=== PATIENT | male | born 1945 | race Caucasian/White ===

== ENCOUNTER 2017-10-22 16:53 | Inpatient (IN) | payer MEDICARE ==
[~2017-10-22] VITALS: Ht 172.7 cm; Wt 95.3 kg
[2017-10-22 17:22] VITALS: BP 123/67; PULSE 95; RESP 23; TEMP 101.9; O2SAT 96
[2017-10-22 17:30] VITALS: TEMP 102.6
[2017-10-22] MEDS ORDERED: SODIUM CHLOR 0.9% 1000 ML INJ 1,000 ML IV ONE ×2 (17:30→17:45)
--- NOTE | 2017-10-22 17:35 | RADRPT ---
EXAM DATE: 10/22/2017 5:30 PM EDT AGE/SEX: 72 years / Male INDICATIONS: Short of breath. CLINICAL DATA: This is the patient's initial encounter. Patient reports that signs and symptoms have been present for 1 day and indicates a pain score of 0/10. MEDICAL/SURGICAL HISTORY: None. None. COMPARISON: No prior exams available for comparison. FINDINGS: A single AP view of the chest demonstrates interstitial prominence to the bases. Heart is at the uppe r limits of normal in terms of size. No effusions. Bony structures are unremarkable. CONCLUSION: Mild interstitial prominence involving the bases. This could relate to early pulmonary edema. Electronically signed by: Davide Justice MD 10/22/2017 5:34 PM EDT
[2017-10-22] MEDS ORDERED: VANCOMYCIN INJ 1,000 MG in SODIUM CHLOR 0.9% 250 ML INJ 250 ML IV ONE (17:45)
[2017-10-22] MEDS ORDERED: PIPERACIL-TAZO 3.375 GM PREMIX 50 ML IV ONE (17:45)
[2017-10-22] MEDS ORDERED: ACETAMINOPHEN 325 MG TAB PO ONE (17:45)
[2017-10-22 18:08] LABS: AUTOMATED NEUTROPHIL # 7.8 TH/MM3 (1.8-7.7); BASOPHIL % 0.3 % (0.0-2.0); EOSINOPHIL % 0.5 % (0.0-4.0); HEMATOCRIT 33.8 % (39.0-51.0); HEMOGLOBIN 11.6 GM/DL (13.0-17.0); LYMPH % 2.1 % (9.0-44.0); LYMPHOCYTE # 0.2 TH/MM3 (1.0-4.8); MEAN CELL VOLUME 94.8 FL (80.0-100.0); MEAN CORPUSCULAR HEMOGLOBIN 32.5 PG (27.0-34.0); MEAN CORPUSCULAR HGB CONC 34.3 % (32.0-36.0); MEAN PLATELET VOLUME 7.5 FL (7.0-11.0); MONO % 8.7 % (0.0-8.0); MONOCYTE # 0.8 TH/MM3 (0-0.9); NEUT % 88.4 % (16.0-70.0); PLATELET COUNT 187 TH/MM3 (150-450); RED BLOOD COUNT 3.57 MIL/MM3 (4.50-5.90); WHITE BLOOD COUNT 8.8 TH/MM3 (4.0-11.0)
[2017-10-22] MEDS ORDERED: DULO1CAP3 PO (18:09)
[2017-10-22] MEDS ORDERED: PANC3600 PO (18:09)
[2017-10-22] MEDS ORDERED: DICL75TA PO (18:09)
[2017-10-22] MEDS ORDERED: CLON0.5T PO (18:09)
[2017-10-22] MEDS ORDERED: LOSA100T PO (18:09)
[2017-10-22] MEDS ORDERED: GLIM4TAB PO (18:09)
[2017-10-22] MEDS ORDERED: HYDR25TA5 PO (18:09)
[2017-10-22] MEDS ORDERED: METF1000 PO (18:09)
[2017-10-22] MEDS ORDERED: ATEN25TA PO (18:09)
[2017-10-22] MEDS ORDERED: ATOR80TA45 PO (18:09)
[2017-10-22] MEDS ORDERED: HYDR-3583 PO (18:09)
[2017-10-22] MEDS ORDERED: AMLO10TA2 PO (18:09)
[2017-10-22 18:22] LABS: PROTHROMBIN TIME - PATIENT 10.5 SEC (9.8-11.6)
[2017-10-22 18:40] VITALS: BP_SYST 118; BP_SYST 121; BP_SYST 126; BP_DIAS 57; BP_DIAS 58; BP_DIAS 60; RESP 17; RESP 19
[2017-10-22 18:44] LABS: ALBUMIN 3.2 GM/DL (3.4-5.0); AST (GOT) 101 U/L (15-37); BICARBONATE 20.6 MEQ/L (21.0-32.0); BLOOD UREA NITROGEN 21 MG/DL (7-18); CALCIUM 9.3 MG/DL (8.5-10.1); CHLORIDE 106 MEQ/L (98-107); CREATININE 1.37 MG/DL (0.60-1.30); GLOMERULAR FILTRATION RATE 51 ML/MIN (>89); GLUCOSE,RANDOM 226 MG/DL (74-106); MAGNESIUM 1.3 MG/DL (1.5-2.5); SODIUM (NA) 138 MEQ/L (136-145)
[2017-10-22 18:48] LABS: LACTIC ACID SEPSIS PROTOCOL 2.3 mmol/L (0.4-2.0)
[2017-10-22 18:56] LABS: ALKALINE PHOSPHATASE 318 U/L (45-117); ALT (GPT) 166 U/L (12-78); TOTAL BILIRUBIN ADULT 0.7 MG/DL (0.2-1.0); TOTAL PROTEIN 6.4 GM/DL (6.4-8.2); TROPONIN I LESS THAN 0.02 NG/ML (0.02-0.05)
--- NOTE | 2017-10-22 18:58 | RADRPT ---
EXAM DATE: 10/22/2017 6:53 PM EDT AGE/SEX: 72 years / Male INDICATIONS: General weakness. CLINICAL DATA: This is the patient's initial encounter. Patient reports that signs and symptoms have been present for 1 day and indicates a pain score of 0/10. MEDICAL/SURGICAL HISTORY: Diabetes. None. RADIATION DOSE: 39.52 CTDI (mGy) COMPARISON: No prior exams available for comparison. TECHNIQUE: CT of the head without contrast. Using automated exposure control and adjustment of the mA and/or kV according to patient size, radiation dose was kept as low as reasonably achievable to ob tain optimal diagnostic quality images. FINDINGS: Cerebrum: The ventricles are normal for age. No evidence of midline shift, mass lesion, hemorrhage or acute infarction. No extraaxial fluid collections are seen. Posterior Fossa: The cerebellum and brainstem are intact. The 4th ventricle is midline. The cerebe llopontine angle is unremarkable. Extracranial: The visualized portion of the orbits is intact. Skull: The calvaria is intact. No evidence of skull fracture. CONCLUSION: 1. Negative for an acute process. Electronically signed by: Stefan Woodward MD 10/22/2017 6:56 PM EDT
[2017-10-22 19:26] VITALS: BP 133/76; PULSE 76; RESP 16; TEMP 98.6; O2SAT 98
[2017-10-22 19:52] LABS: BILIRUBIN, URINE NEG (NEG); BLOOD, URINE NEG (NEG); GLUCOSE,URINE TRACE mg/dL (NEG); KETONE, URINE NEG (NEG); NITRITE,URINE NEG (NEG); PH, URINE 5.5 (5.0-8.5); URINE COLOR YELLOW (YELLW/STRAW); URINE LEUKOCYTE ESTERASE NEG (NEG)
--- NOTE | 2017-10-22 19:52 | PD ---
HPI Chief Complaint: General Weakness Time Seen by Provider: 17:18 Travel History International Travel<30 days: No Contact w/Intl Traveler<30days: No Traveled to known affect area: No History of Present Illness HPI 72-year-old male that presents to the ED for evaluation of weakness. Patient apparently has been having weakness since today. No history of this in the past. Patient himself is not a good historian. He denies any medical issues. He does state that he takes multiple medications but he does not know what they are and his has the list. He states that for the most part his called the imbalance because he could not get up on his own. Ambulance showed up and they found that he was orthostatic. Patient denies any urinary or bowel movement issues. No diarrhea. No nausea or vomiting. No pain on his chest or shortness of breath. Has no allergies to medication. No other medical issues at this time. He was given some fluids by ambulance. Patient states that he feels dizzy and lightheaded when he stands. Otherwise he has no symptoms. Patient does appear to be somewhat lethargic but arousable and answers questions appropriately. He also seems to minimize symptoms. He denies any pain anywhere. PFSH Past Medical History High Cholesterol: Yes Diabetes: Yes Patient Takes Glucophage: Yes Hypertension: Yes Pancreatitis: Yes Social History Alcohol Use: Yes (OCC) Tobacco Use: No Substance Use: No Allergies-Medications (Allergen,Severity, Reaction): Coded Allergies: No Known Allergies (Unverified , 10/22/17) Reported Meds & Prescriptions Reported Meds & Active Scripts Active Reported Diclofenac Sodium DR (Diclofenac Sodium) 75 Mg Tabdr 75 Mg PO BID Hydrocodone-Acetaminophen 10-325 mg Tab 1 Tab PO Q4H PRN Clonazepam 0.5 Mg Tab 0.5 Mg PO BID Creon (Pancrelipase) 36,000-114,000-180,000 Units Cap 1 Cap PO BID Metformin (Metformin HCl) 1,000 Mg Tab 1,000 Mg PO BIDPC Atenolol 25 Mg Tab 25 Mg PO BID Glimepiride 4 Mg Tab 4 Mg PO BIDAC Amlodipine (Amlodipine Besylate) 10 Mg Tab 10 Mg PO BID Atorvastatin (Atorvastatin Calcium) 80 Mg Tab 80 Mg PO HS Hydrochlorothiazide 25 Mg Tab 25 Mg PO BID Duloxetine DR (Duloxetine HCl) 60 Mg Capdr 60 Mg PO DAILY Losartan (Losartan Potassium) 100 Mg Tab 100 Mg PO DAILY Review of Systems Except as stated in HPI: all other systems reviewed are Neg Physical Exam Narrative GENERAL: Well-nourished, well-developed patient in no apparent distress. SKIN: Warm and dry. HEAD: Atraumatic. Normocephalic. EYES: Pupils equal and round reactive to light and accommodation. No scleral icterus. No injection or drainage. ENT: No nasal bleeding or discharge. Mucous membranes pink and moist. TMs are clear with no sign of infection or perforation. No mastoid tenderness. Ear canals are intact bilaterally. No lymphadenopathy. Nostril mucosa is red and moist with clear mucus noted. No sinus tenderness to palpation noted. Tonsils are not enlarged or swollen. No ulvua Deviation. Tongue is midline. NECK: Trachea midline. No JVD. No meningeal signs noted CARDIOVASCULAR: Regular rate and rhythm. RESPIRATORY: No accessory muscle use. Clear to auscultation. Breath sounds equal bilaterally. GASTROINTESTINAL: Abdomen soft, non-tender, nondistended. Hepatic and splenic margins not palpable. MUSCULOSKELETAL: Extremities without clubbing, cyanosis, or edema. No obvious deformities. Full range of motion of the upper and lower extremities bilaterally. 2+ pulses bilaterally. Rectal exam: The with female nurse present. No obvious sign of hernia or deformity noted. Patient had a Hemoccult that was negative. NEUROLOGICAL: Awake and alert. No obvious cranial nerve deficits. Motor grossly within normal limits. Five out of 5 muscle strength in the arms and legs. Normal speech. PSYCHIATRIC: Appropriate mood and affect; insight and judgment normal. Data Data Last Documented VS Vital Signs Date Time Temp Pulse Resp B/P (MAP) Pulse Ox O2 Delivery O2 Flow Rate FiO2 10/22/17 19:26 98.6 76 16 133/76 (95) 98 Room Air Orders Orders Electrocardiogram (10/22/17 17:18) Complete Blood Count With Diff (10/22/17 17:18) Comprehensive Metabolic Panel (10/22/17 17:18) Ckmb (Isoenzyme) Profile (10/22/17 17:18) Troponin I (10/22/17 17:18) Prothrombin Time / Inr (Pt) (10/22/17 17:18) Act Partial Throm Time (Ptt) (10/22/17 17:18) Blood Culture (10/22/17 17:18) Urinalysis - C+S If Indicated (10/22/17 17:18) Magnesium (Mg) (10/22/17 17:18) Thyroid Stimulating Hormone (10/22/17 17:18) Chest, Single Ap (10/22/17 17:18) Ct Brain W/O Iv Contrast(Rout) (10/22/17 17:18) Iv Access Insert/Monitor (10/22/17 17:18) Ecg Monitoring (10/22/17 17:18) Oximetry (10/22/17 17:18) Orthostatic Vital Signs (10/22/17 17:18) Sodium Chlor 0.9% 1000 Ml Inj (Ns 1000 M (10/22/17 17:30) Lactic Acid Sepsis Protocol (10/22/17 17:36) Sodium Chlor 0.9% 1000 Ml Inj (Ns 1000 M (10/22/17 17:45) Acetaminophen (Tylenol) (10/22/17 17:45) Vancomycin Inj (Vancomycin Inj) (10/22/17 17:45) Piperacil-Tazo 3.375 Gm Premix (Zosyn 3. (10/22/17 17:45) Sepsis Workup Initiated (10/22/17 17:37) Us Abdomen Gallbladder (10/22/17 ) Labs Laboratory Tests Test 10/22/17 17:45 10/22/17 19:20 10/22/17 20:40 White Blood Count 8.8 TH/MM3 Red Blood Count 3.57 MIL/MM3 Hemoglobin 11.6 GM/DL Hematocrit 33.8 % Mean Corpuscular Volume 94.8 FL Mean Corpuscular Hemoglobin 32.5 PG Mean Corpuscular Hemoglobin Concent 34.3 % Red Cell Distribution Width 13.0 % Platelet Count 187 TH/MM3 Mean Platelet Volume 7.5 FL Neutrophils (%) (Auto) 88.4 % Lymphocytes (%) (Auto) 2.1 % Monocytes (%) (Auto) 8.7 % Eosinophils (%) (Auto) 0.5 % Basophils (%) (Auto) 0.3 % Neutrophils # (Auto) 7.8 TH/MM3 Lymphocytes # (Auto) 0.2 TH/MM3 Monocytes # (Auto) 0.8 TH/MM3 Eosinophils # (Auto) 0.0 TH/MM3 Basophils # (Auto) 0.0 TH/MM3 CBC Comment DIFF FINAL Differential Comment Prothrombin Time 10.5 SEC Prothromb Time International Ratio 1.0 RATIO Activated Partial Thromboplast Time 23.4 SEC Blood Urea Nitrogen 21 MG/DL Creatinine 1.37 MG/DL Random Glucose 226 MG/DL Total Protein 6.4 GM/DL Albumin 3.2 GM/DL Calcium Level 9.3 MG/DL Magnesium Level 1.3 MG/DL Alkaline Phosphatase 318 U/L Aspartate Amino Transf (AST/SGOT) 101 U/L Alanine Aminotransferase (ALT/SGPT) 166 U/L Total Bilirubin 0.7 MG/DL Sodium Level 138 MEQ/L Potassium Level 4.1 MEQ/L Chloride Level 106 MEQ/L Carbon Dioxide Level 20.6 MEQ/L Anion Gap 11 MEQ/L Estimat Glomerular Filtration Rate 51 ML/MIN Lactic Acid Level 2.3 mmol/L Total Creatine Kinase 86 U/L Troponin I LESS THAN 0.02 NG/ML Thyroid Stimulating Hormone 3rd Gen 1.250 uIU/ML Urine Color YELLOW Urine Turbidity CLEAR Urine pH 5.5 Urine Specific [place] 1.015 Urine Protein NEG mg/dL Urine Glucose (UA) TRACE mg/dL Urine Ketones NEG mg/dL Urine Occult Blood NEG Urine Nitrite NEG Urine Bilirubin NEG Urine Urobilinogen LESS THAN 2.0 MG/DL Urine Leukocyte Esterase NEG Urine RBC LESS THAN 1 /hpf Urine WBC LESS THAN 1 /hpf Microscopic Urinalysis Comment CULT NOT INDICATED MDM Medical Decision Making Medical Screen Exam Complete: Yes Emergency Medical Condition: Yes Medical Record Reviewed: Yes Interpretation(s) CBC & BMP Diagram 10/22/17 17:45 Total Protein 6.4, Albumin 3.2 L, Calcium Level 9.3, Magnesium Level 1.3 L, Alkaline Phosphatase 318 H, Aspartate Amino Transf (AST/SGOT) 101 H, Alanine Aminotransferase (ALT/SGPT) 166 H, Total Bilirubin 0.7 lactic acid in the 2s troponin and CKMB WNL EKG showed sinus tachycardia but no sign of acute ischemia or arrhythmia per my attending. He does appear to have an LBBB of unclear chronicity. Last Impressions Head CT 10/22/171717 Signed Impressions: CONCLUSION: 1. Negative for an acute process. Chest X-Ray 10/22/171717 Signed Impressions: CONCLUSION: Mild interstitial prominence involving the bases. This could relate to early pulmonary edema. Differential Diagnosis Sepsis versus orthostatic hypotension versus hypotension versus fever versus fever of unknown etiology versus UTI versus cystitis versus syncope versus ACS Narrative Course 72-year-old male that presents to the ED for evaluation of hypotension. Patient was properly examined and was found to have signs and symptoms concerning for sepsis. Hemoccult was done by me and was negative. Labs and imaging were ordered. Patient was found to have a temperature here 102 rectally and 101 by mouth. Patient was given Tylenol and fluids started. Sepsis protocol was started. My attending Dr. Johnson himself evaluated the patient and recommends starting antibiotics for now. Labs and imaging showed elevated lactic acid and elevated liver enzymes. Ultrasound was ordered as well as had a gallbladder disease although patient has no Stokes sign or any pain on his abdomen. Orthostatics were improved after fluids. Patient states fever went away with Tylenol. Unclear etiology of the symptoms as patient does not really complain of anything other than weakness when she stands. At this time recommendations for admission for further evaluation. My attending agrees with plan. Patient agrees with plan. Case discussed with Dr. Browne who agrees to admission. Sepsis Criteria SIRS Criteria (2 or more): Temp > 100.9 or < 96.8, Heart rate over 90 Sepsis Criteria (SIRS+source): Infect source susp/known Severe Sepsis (+one): Lactate >2 Criteria Outcome: Meets sepsis criteria Diagnosis Primary Impression: Sepsis Qualified Codes: A41.9 - Sepsis, unspecified organism Additional Impressions: Weakness Fever of unknown origin Lactic acid increased Hypotension Qualified Codes: I95.9 - Hypotension, unspecified Admitting Information Admitting Physician Requests: Admit Dar Bartlett Oct 22, 2017 19:52
--- NOTE | 2017-10-22 20:23 | RADRPT ---
EXAM DATE: 10/22/2017 8:20 PM EDT AGE/SEX: 72 years / Male INDICATIONS: Right upper quadrant pain. CLINICAL DATA: This is the patient's initial encounter. Patient reports that signs and/or symptoms h ave been present for 3 days and indicates a pain score of 0/10. MEDICAL/SURGICAL HISTORY: Hypercholesterolemia. Hypertension. Pancreatitis. Diabetes. . Back s urgery. COMPARISON: No prior exams available for comparison. MEASUREMENTS (cm x cm x cm): Liver:__ 16.2 cm length Common Bile Duct:__ 4mm FINDINGS: Liver: Coarse echotexture suggesting fatty change or diffuse hepatocellular process. Portal Vein: Normal flow is seen in portal vein. Common Duct: No intraluminal mass or stone visualized. Gallbladder: Demonstrates no wall thickening or pericholecystic fluid. No stones visualized. Mild pr ominence the gallbladder Pancreas: Not well visualized. Right Kidney: No mass or hydronephrosis Other: None. CONCLUSION: 1. Echogenic liver 2. Prominent gallbladder without stones or gallbladder wall thickening. Electronically signed by: Stefan Woodward MD 10/22/2017 8:22 PM EDT
[2017-10-22 21:23] VITALS: BP 120/69; PULSE 69; RESP 16; O2SAT 98
[2017-10-22] MEDS ORDERED: NALOXONE HCL 0.4 MG/ML AMP IV PUSH PRN (22:00)
[2017-10-22] MEDS ORDERED: DEXTROSE 50% IN WATER 50 ML VIAL(D50) IV PUSH PRN (22:00)
[2017-10-22] MEDS ORDERED: ACETAMINOPHEN 325 MG TAB PO PRN (22:00)
[2017-10-22] MEDS ORDERED: SODIUM CHLORIDE 0.9% FLUSH 10 ML FLUSH IV FLUSH PRN (22:00)
[2017-10-22] MEDS ORDERED: GLUCAGON 1 MG/ML VIAL OTHER PRN (22:00)
[2017-10-22] MEDS: SODIUM CHLOR 0.9% 1000 ML INJ 1,000 ML IV SCH (22:05)
[2017-10-22] MEDS: HEPARIN SODIUM - SQ 10,000 UNITS/ML VIAL SQ SCH (22:25)
[2017-10-22 22:45] VITALS: BP_SYST 136; BP_SYST 139; BP_SYST 155; BP_DIAS 62; BP_DIAS 70; BP_DIAS 71; PULSE 62; RESP 20; TEMP 98.2; O2SAT 98
--- NOTE | 2017-10-22 23:33 | HHI.HP ---
HPI Service [facility] Primary Care Physician Deja Sadler MD Admission Diagnosis sepsis, unkown source, hypotension Diagnoses: Travel History International Travel<30 Days: No Contact w/Intl Traveler <30 Da: No Traveled to Known Affected Are: No History of Present Illness 72-year-old male with a past medical history significant for hypertension, hyperlipidemia, anxiety/depression and diabetes mellitus presents to the emergency department for evaluation of weakness the patient reports that earlier today he was on the floor playing with the dog and was unable to get up. He has no history of this. The patient is a poor historian. He endorses subjective fevers/chills. Denies cough. No chest pain or shortness of breath. No otorrhea breath/rhinorrhea. No dysuria. No abdominal pain. No nausea/ vomiting/diarrhea. No lateralizing signs or symptoms. Review of Systems Except as stated in HPI: all other systems reviewed are Neg Past Family Social History Past Medical History hypertension, hyperlipidemia, anxiety/depression and diabetes mellitus Past Surgical History Back surgery I&D left elbow Tonsillectomy Reported Medications Reported Meds & Active Scripts Active Reported Diclofenac Sodium DR (Diclofenac Sodium) 75 Mg Tabdr 75 Mg PO BID Hydrocodone-Acetaminophen 10-325 mg Tab 1 Tab PO Q4H PRN Clonazepam 0.5 Mg Tab 0.5 Mg PO BID Creon (Pancrelipase) 36,000-114,000-180,000 Units Cap 1 Cap PO BID Metformin (Metformin HCl) 1,000 Mg Tab 1,000 Mg PO BIDPC Atenolol 25 Mg Tab 25 Mg PO BID Glimepiride 4 Mg Tab 4 Mg PO BIDAC Amlodipine (Amlodipine Besylate) 10 Mg Tab 10 Mg PO BID Atorvastatin (Atorvastatin Calcium) 80 Mg Tab 80 Mg PO HS Hydrochlorothiazide 25 Mg Tab 25 Mg PO BID Duloxetine DR (Duloxetine HCl) 60 Mg Capdr 60 Mg PO DAILY Losartan (Losartan Potassium) 100 Mg Tab 100 Mg PO DAILY Allergies: Coded Allergies: No Known Allergies (Unverified , 10/22/17) Family History Negative for CAD/DM Social History Occasional alcohol. Denies tobacco and illicit drugs. Physical Exam Vital Signs Vital Signs Date Time Temp Pulse Resp B/P (MAP) Pulse Ox O2 Delivery O2 Flow Rate FiO2 10/22/17 21:23 69 16 120/69 (86) 98 Room Air 10/22/17 19:26 98.6 76 16 133/76 (95) 98 Room Air 10/22/17 18:40 82 17 126/60 (82) 84 19 118/58 (78) 90 17 121/57 (78) 10/22/17 17:30 102.6 10/22/17 17:22 101.9 95 23 123/67 (85) 96 Room Air Physical Exam GENERAL: male lying in bed SKIN: No rashes, ecchymoses or lesions. Cool and dry. HEAD: Atraumatic. Normocephalic. No temporal or scalp tenderness. EYES: Pupils equal round and reactive. Extraocular motions intact. No scleral icterus. No injection or drainage. ENT: Nose without bleeding, purulent drainage or septal hematoma. Throat without erythema, tonsillar hypertrophy or exudate. Uvula midline. Airway patent. NECK: Trachea midline. No JVD or lymphadenopathy. Supple, nontender, no meningeal signs. CARDIOVASCULAR: Regular rate and rhythm without murmurs, gallops, or rubs. RESPIRATORY: Clear to auscultation. Breath sounds equal bilaterally. No wheezes , rales, or rhonchi. GASTROINTESTINAL: Abdomen soft, non-tender, nondistended. No hepato-splenomegaly , or palpable masses. No guarding. MUSCULOSKELETAL: Extremities without clubbing, cyanosis, or edema. No joint tenderness, effusion, or edema noted. No calf tenderness. NEUROLOGICAL: Awake and alert. Cranial nerves II through XII intact. Motor and sensory grossly within normal limits. Normal speech. Laboratory Laboratory Tests Test 10/22/17 17:45 10/22/17 19:20 10/22/17 20:40 White Blood Count 8.8 Red Blood Count 3.57 Hemoglobin 11.6 Hematocrit 33.8 Mean Corpuscular Volume 94.8 Mean Corpuscular Hemoglobin 32.5 Mean Corpuscular Hemoglobin Concent 34.3 Red Cell Distribution Width 13.0 Platelet Count 187 Mean Platelet Volume 7.5 Neutrophils (%) (Auto) 88.4 Lymphocytes (%) (Auto) 2.1 Monocytes (%) (Auto) 8.7 Eosinophils (%) (Auto) 0.5 Basophils (%) (Auto) 0.3 Neutrophils # (Auto) 7.8 Lymphocytes # (Auto) 0.2 Monocytes # (Auto) 0.8 Eosinophils # (Auto) 0.0 Basophils # (Auto) 0.0 CBC Comment DIFF FINAL Differential Comment Prothrombin Time 10.5 Prothromb Time International Ratio 1.0 Activated Partial Thromboplast Time 23.4 Blood Urea Nitrogen 21 Creatinine 1.37 Random Glucose 226 Total Protein 6.4 Albumin 3.2 Calcium Level 9.3 Magnesium Level 1.3 Alkaline Phosphatase 318 Aspartate Amino Transf (AST/SGOT) 101 Alanine Aminotransferase (ALT/SGPT) 166 Total Bilirubin 0.7 Sodium Level 138 Potassium Level 4.1 Chloride Level 106 Carbon Dioxide Level 20.6 Anion Gap 11 Estimat Glomerular Filtration Rate 51 Lactic Acid Level 2.3 1.4 Total Creatine Kinase 86 Troponin I LESS THAN 0.02 Thyroid Stimulating Hormone 3rd Gen 1.250 Urine Color YELLOW Urine Turbidity CLEAR Urine pH 5.5 Urine Specific [place] 1.015 Urine Protein NEG Urine Glucose (UA) TRACE Urine Ketones NEG Urine Occult Blood NEG Urine Nitrite NEG Urine Bilirubin NEG Urine Urobilinogen LESS THAN 2.0 Urine Leukocyte Esterase NEG Urine RBC LESS THAN 1 Urine WBC LESS THAN 1 Microscopic Urinalysis Comment CULT NOT INDICATED Date/Time Source Procedure Growth Status 10/22/17 17:45 Blood Peripheral Aerobic Blood Culture Pending Received 10/22/17 17:45 Blood Peripheral Anaerobic Blood Culture Pending Received Result Diagram: 10/22/17 1745 10/22/17 174 Caprini VTE Risk Assessment Caprini VTE Risk Assessment: Mod/High Risk (score >= 2) Caprini Risk Assessment Model Point Value = 1 Point Value = 2 Point Value = 3 Point Value = 5 Age 41-60 Minor surgery BMI > 25 kg/m2 Swollen legs Varicose veins or History of unexplained or recurrent spontaneous Oral contraceptives or hormone replacement Sepsis (< 1 month) Serious lung disease, including pneumonia (< 1 month) Abnormal pulmonary function Acute myocardial infarction Congestive heart failure (< 1 month) History of inflammatory bowel disease Medical patient at bed rest Age 61-74 Arthroscopic surgery Major open surgery (> 45 min) Laparoscopic surgery (> 45 min) Malignancy Confined to bed (> 72 hours) Immobilizing plaster cast Central venous access Age >= 75 History of VTE Family history of VTE Factor V Leiden Prothrombin [id number] Lupus anticoagulant Anticardiolipin antibodies Elevated serum homocysteine Heparin-induced thrombocytopenia Other congenital or acquired thrombophilia Stroke (< 1 month) Elective arthroplasty Hip, pelvis, or leg fracture Acute spinal cord injury (< 1 month) Prophylaxis Regimen Total Risk Factor Score Risk Level Prophylaxis Regimen 0-1 Low Early ambulation 2 Moderate Order ONE of the following: *Sequential Compression Device (SCD) *Heparin 5000 units SQ BID 3-4 Higher Order ONE of the following medications: *Heparin 5000 units SQ TID *Enoxaparin/Lovenox 40 mg SQ daily (WT < 150 kg, CrCl > 30 mL/min) *Enoxaparin/Lovenox 30 mg SQ daily (WT < 150 kg, CrCl > 10-29 mL/min) *Enoxaparin/Lovenox 30 mg SQ BID (WT < 150 kg, CrCl > 30 mL/min) AND/OR *Sequential Compression Device (SCD) 5 or more Highest Order ONE of the following medications: *Heparin 5000 units SQ TID (Preferred with Epidurals) *Enoxaparin/Lovenox 40 mg SQ daily (WT < 150 kg, CrCl > 30 mL/min) *Enoxaparin/Lovenox 30 mg SQ daily (WT < 150 kg, CrCl > 10-29 mL/min) *Enoxaparin/Lovenox 30 mg SQ BID (WT < 150 kg, CrCl > 30 mL/min) AND *Sequential Compression Device (SCD) Assessment and Plan Assessment and Plan Assessment/plan: 1. SIRS Patient with fever, tachycardia and elevated lactic acid Chest x-ray significant for mild interstitial prominence in the bases, personally reviewed No leukocytosis UA negative Flu pending Blood cultures pending Zosyn 2. Transaminitis AST/ALT 101/166 Gallbladder ultrasound negative Continue to monitor 3. Diabetes mellitus Holding home metformin Sliding-scale insulin Monitor blood glucose 4. Hypertension/hyperlipidemia/anxiety/depression Continue home medications 5. AK I BUN/creatinine 21/1.37 IV fluid hydration Monitor renal function FEN Heart healthy diet Electrolytes: Monitor and replete as needed NS at 100 cc/hour Heparin Physician Certification 2 Midnight Certification Type: Admission for Inpatient Services Order for Inpatient Services The services are ordered in accordance with Medicare regulations or non- Medicare payer requirements, as applicable. In the case of services not specified as inpatient-only, they are appropriately provided as inpatient services in accordance with the 2-midnight benchmark. Estimated LOS (days): 2 2 days is the estimated time the patient will need to remain in the hospital, assuming treatment plan goals are met and no additional complications. Post-Hospital Plan: Not yet determined Lashonda Browne MD Oct 22, 2017 23:33
[2017-10-23] MEDS: ATORVASTATIN 80 MG TAB PO SCH ×2 (00:02→21:23)
[2017-10-23] MEDS: PIPERACIL-TAZO 3.375 GM PREMIX 50 ML IV SCH ×4 (00:02→17:30)
[2017-10-23 04:00] VITALS: BP 113/56; PULSE 48; RESP 20; TEMP 98.2; O2SAT 98
[2017-10-23] MEDS: HEPARIN SODIUM - SQ 10,000 UNITS/ML VIAL SQ SCH ×3 (04:21→21:30)
[2017-10-23 04:58] VITALS: PULSE 61
[2017-10-23] MEDS: INSULIN ASPART SUPPLEMENTAL SCALE SQ SCH ×4 (07:40→21:00)
[2017-10-23 08:00] VITALS: BP_SYST 150; BP_SYST 155; BP_SYST 169; BP_DIAS 70; BP_DIAS 72; BP_DIAS 74; PULSE 47; RESP 17; TEMP 97.6; O2SAT 97
[2017-10-23] MEDS: LOSARTAN 50 MG TAB PO SCH (08:48)
[2017-10-23] MEDS: DULoxetine HCl DR 60 MG CAP PO SCH (08:48)
[2017-10-23] MEDS: LIPASE/PROTEASE/AMYLASE (24,000/76,000/120,000) CAP PO SCH ×2 (08:48→21:25)
[2017-10-23] MEDS: ATENOLOL 25 MG TAB PO SCH ×2 (08:48→21:00)
[2017-10-23] MEDS: SODIUM CHLOR 0.9% 1000 ML INJ 1,000 ML IV SCH ×3 (08:48→21:30)
[2017-10-23] MEDS: SODIUM CHLORIDE 0.9% FLUSH 10 ML FLUSH IV FLUSH SCH ×2 (08:49→21:35)
[2017-10-23] MEDS ORDERED: LIPASE/PROTEASE/AMYLASE (12,000/38,000/60,000) CAP PO SCH (09:00)
--- NOTE | 2017-10-23 09:13 | EKG ---
Date Performed: 10/22/2017 Time Performed: 16:17:35 PTAGE: 72 years EKG: SINUS TACHYCARDIA WITH FIRST DEGREE AV BLOCK LEFT BUNDLE BRANCH BLOCK NO PREVIOUS TRACING DOCTOR: Ross Daigle Interpretating Date/Time 10/23/2017 09:13:12
[2017-10-23 09:42] LABS: AUTOMATED NEUTROPHIL # 9.5 TH/MM3 (1.8-7.7); BASOPHIL % 0.2 % (0.0-2.0); EOSINOPHIL # 0.2 TH/MM3 (0-0.4); EOSINOPHIL % 1.7 % (0.0-4.0); HEMATOCRIT 32.2 % (39.0-51.0); HEMOGLOBIN 11.1 GM/DL (13.0-17.0); LYMPH % 11.7 % (9.0-44.0); LYMPHOCYTE # 1.4 TH/MM3 (1.0-4.8); MEAN CELL VOLUME 95.7 FL (80.0-100.0); MEAN CORPUSCULAR HEMOGLOBIN 33.1 PG (27.0-34.0); MEAN CORPUSCULAR HGB CONC 34.6 % (32.0-36.0); MEAN PLATELET VOLUME 7.6 FL (7.0-11.0); MONO % 8.1 % (0.0-8.0); NEUT % 78.3 % (16.0-70.0); PLATELET COUNT 191 TH/MM3 (150-450); RED BLOOD COUNT 3.36 MIL/MM3 (4.50-5.90); WHITE BLOOD COUNT 12.1 TH/MM3 (4.0-11.0)
[2017-10-23 10:14] LABS: ALKALINE PHOSPHATASE 235 U/L (45-117); ALT (GPT) 127 U/L (12-78); AST (GOT) 58 U/L (15-37); BICARBONATE 23.5 MEQ/L (21.0-32.0); BLOOD UREA NITROGEN 14 MG/DL (7-18); CALCIUM 9.4 MG/DL (8.5-10.1); CHLORIDE 109 MEQ/L (98-107); GLOMERULAR FILTRATION RATE 74 ML/MIN (>89); GLUCOSE,RANDOM 94 MG/DL (74-106); SODIUM (NA) 142 MEQ/L (136-145)
[2017-10-23] MEDS ORDERED: DIATRIZOATE MEGLUM/DIATRIZOATE SOD 9 ML CUP PO ONE (10:45)
[2017-10-23 12:00] VITALS: BP 148/67; PULSE 55; RESP 16; TEMP 98.6; O2SAT 98
[2017-10-23 13:09] LABS: CHOLESTEROL/ HDL RATIO 2.31 RATIO; HDL CHOLESTEROL 37.6 MG/DL (40.0-60.0)
--- NOTE | 2017-10-23 14:06 | HHI.PR ---
Subjective Remarks Patient with his at the bedside He reported no acute issue today and he is doing well When asked the patient about any liver lesions in the past he told me he did have a problem with his liver last year and he had a stent placed and removed later at the time but he does not know the diagnosis He told me he has a PCP in [place] Objective Vitals Vital Signs Date Time Temp Pulse Resp B/P (MAP) Pulse Ox O2 Delivery O2 Flow Rate FiO2 10/23/17 12:00 98.6 55 16 148/67 (94) 98 10/23/17 08:00 97.6 47 17 169/74 (105) 97 155/70 (98) 150/72 (98) 10/23/17 04:58 61 10/23/17 04:00 98.2 48 20 113/56 (75) 98 10/22/17 22:45 98.2 62 20 155/71 (99) 98 139/62 (87) 136/70 (92) 10/22/17 21:23 69 16 120/69 (86) 98 Room Air 10/22/17 19:26 98.6 76 16 133/76 (95) 98 Room Air 10/22/17 18:40 82 17 126/60 (82) 84 19 118/58 (78) 90 17 121/57 (78) 10/22/17 17:30 102.6 10/22/17 17:22 101.9 95 23 123/67 (85) 96 Room Air I/O 10/22/17 10/22/17 10/22/17 10/23/17 10/23/17 10/23/17 07:00 15:00 23:00 07:00 15:00 23:00 Output Total 600 ml Balance -600 ml Output Urine Total 600 ml Result Diagram: 10/23/17 0842 10/23/17 0842 Objective Remarks GENERAL: This is a well-nourished, well-developed patient, in no apparent distress. CARDIOVASCULAR: RRR, no gallops, or rubs. RESPIRATORY: Fair air entry bilaterally. No W, R, or R GASTROINTESTINAL: Abdomen soft, non-tender, nondistended. Positive bowel sounds MUSCULOSKELETAL: Extremities without clubbing, cyanosis, or edema. Pedal pulses appreciated NEUROLOGICAL: Awake and alert. Moves all extremity. Normal speech.no focal neurological deficit A/P Assessment and Plan 10/23: Fever resolved we will continue monitoring LFT, creatinine increased to 1.3>> I will order hepatitis panel, CT of the abdomen without contrast, will request records from PCP in [place], consider ID consultation Will order liver workup with ferritin, SONIYA, ASMA A/P: 1. SIRS Patient with fever, tachycardia and elevated lactic acid Chest x-ray significant for mild interstitial prominence in the bases, personally reviewed No leukocytosis UA negative Flu pending Blood cultures pending Zosyn 2. Transaminitis AST/ALT 101/166 Gallbladder ultrasound negative Continue to monitor 3. Diabetes mellitus Holding home metformin Sliding-scale insulin Monitor blood glucose 4. Hypertension/hyperlipidemia/anxiety/depression Continue home medications 5. AK I BUN/creatinine 21/1.37 IV fluid hydration Monitor renal function FEN Heart healthy diet Electrolytes: Monitor and replete as needed NS at 100 cc/hour Heparin Yung Marshall MD Oct 23, 2017 14:06
[2017-10-23 16:00] VITALS: BP 149/69; PULSE 60; RESP 18; TEMP 97.7; O2SAT 98
--- NOTE | 2017-10-23 16:12 | PD.CONS ---
HPI History of Present Illness This is a 72 year old M with PMH significant for HTN, HLD, anxiety/depression and DM who states he was in his regular health until two days ago when he began feeling weak, he got on the floor to play with his dog and was unable to get back up. Also complaining of some chills but denies any fevers. Our service has been consulted to evaluate patient for elevated liver enzymes. Pt denies any known history of liver issues in the past. Does report history of a stent placed in his common bile duct for a stone last December, it was then removed in February. Denies any GI symptoms including nausea, vomiting, acid reflux, heartburn, abdominal pain, unintentional weight loss, constipation and diarrhea. Pt recently moved here 5 weeks ago from [place]. Prior to moving he had an EGD and colonoscopy by his GI doctor 3 months ago, he states both exams were normal. Denies any family history significant for liver issues. Pt reports drinking two beers daily. Denies smoking and illicit drug use. Takes OTC omega 3 and and B12. Also takes Hydrocodone/acetaminophen 10/325 and takes approximately 4 episodes a day. Denies any addition OTC Tylenol use. Denies history of IV drug use, blood transfusions, recent travel. (Isabel Meeks) PFSH Past Medical History hypertension, hyperlipidemia, anxiety/depression and diabetes mellitus Past Surgical History Back surgery I&D left elbow Tonsillectomy EGD Colonoscopy ERCP with stent placement S/P removal of stent (Isabel Meeks) Coded Allergies: No Known Allergies (Unverified , 10/22/17) Family History Negative for CAD/DM Social History ETOH- 2 beers a day Denies smoking and illicit drug use (Isabel Meeks) Review of Systems Constitutional: COMPLAINS OF: Fatigue, Chills Gastrointestinal: DENIES: Abdominal pain, Black stools, Bloody stools, Constipation, Diarrhea, Nausea, Vomiting, Difficulty Swallowing, Odynophagia, Swelling of Abdomen, Heartburn, Hematemesis (Isabel Meeks) GI Exam Vitals I&O Vital Signs Date Time Temp Pulse Resp B/P (MAP) Pulse Ox O2 Delivery O2 Flow Rate FiO2 10/23/17 12:00 98.6 55 16 148/67 (94) 98 10/23/17 08:00 97.6 47 17 169/74 (105) 97 155/70 (98) 150/72 (98) 10/23/17 04:58 61 10/23/17 04:00 98.2 48 20 113/56 (75) 98 10/22/17 22:45 98.2 62 20 155/71 (99) 98 139/62 (87) 136/70 (92) 10/22/17 21:23 69 16 120/69 (86) 98 Room Air 10/22/17 19:26 98.6 76 16 133/76 (95) 98 Room Air 10/22/17 18:40 82 17 126/60 (82) 84 19 118/58 (78) 90 17 121/57 (78) 10/22/17 17:30 102.6 10/22/17 17:22 101.9 95 23 123/67 (85) 96 Room Air I/O 10/22/17 10/22/17 10/22/17 10/23/17 10/23/17 10/23/17 07:00 15:00 23:00 07:00 15:00 23:00 Output Total 600 ml Balance -600 ml Output Urine Total 600 ml Imaging Last Impressions Head CT 10/22/171717 Signed Impressions: CONCLUSION: 1. Negative for an acute process. Chest X-Ray 10/22/171717 Signed Impressions: CONCLUSION: Mild interstitial prominence involving the bases. This could relate to early pulmonary edema. Gall Bladder Ultrasound 10/22/17 0000 Signed Impressions: CONCLUSION: 1. Echogenic liver 2. Prominent gallbladder without stones or gallbladder wall thickening. Laboratory Test 10/22/17 17:45 10/22/17 19:20 10/22/17 20:40 10/23/17 08:42 White Blood Count 8.8 TH/MM3 12.1 TH/MM3 Red Blood Count 3.57 MIL/MM3 3.36 MIL/MM3 Hemoglobin 11.6 GM/DL 11.1 GM/DL Hematocrit 33.8 % 32.2 % Mean Corpuscular Volume 94.8 FL 95.7 FL Mean Corpuscular Hemoglobin 32.5 PG 33.1 PG Mean Corpuscular Hemoglobin Concent 34.3 % 34.6 % Red Cell Distribution Width 13.0 % 13.0 % Platelet Count 187 TH/MM3 191 TH/MM3 Mean Platelet Volume 7.5 FL 7.6 FL Neutrophils (%) (Auto) 88.4 % 78.3 % Lymphocytes (%) (Auto) 2.1 % 11.7 % Monocytes (%) (Auto) 8.7 % 8.1 % Eosinophils (%) (Auto) 0.5 % 1.7 % Basophils (%) (Auto) 0.3 % 0.2 % Neutrophils # (Auto) 7.8 TH/MM3 9.5 TH/MM3 Lymphocytes # (Auto) 0.2 TH/MM3 1.4 TH/MM3 Monocytes # (Auto) 0.8 TH/MM3 1.0 TH/MM3 Eosinophils # (Auto) 0.0 TH/MM3 0.2 TH/MM3 Basophils # (Auto) 0.0 TH/MM3 0.0 TH/MM3 CBC Comment DIFF FINAL DIFF FINAL Differential Comment Prothrombin Time 10.5 SEC Prothromb Time International Ratio 1.0 RATIO Activated Partial Thromboplast Time 23.4 SEC Blood Urea Nitrogen 21 MG/DL 14 MG/DL Creatinine 1.37 MG/DL 1.00 MG/DL Random Glucose 226 MG/DL 94 MG/DL Total Protein 6.4 GM/DL 6.0 GM/DL Albumin 3.2 GM/DL 3.0 GM/DL Calcium Level 9.3 MG/DL 9.4 MG/DL Magnesium Level 1.3 MG/DL Alkaline Phosphatase 318 U/L 235 U/L Aspartate Amino Transf (AST/SGOT) 101 U/L 58 U/L Alanine Aminotransferase (ALT/SGPT) 166 U/L 127 U/L Total Bilirubin 0.7 MG/DL 1.0 MG/DL Sodium Level 138 MEQ/L 142 MEQ/L Potassium Level 4.1 MEQ/L 3.9 MEQ/L Chloride Level 106 MEQ/L 109 MEQ/L Carbon Dioxide Level 20.6 MEQ/L 23.5 MEQ/L Anion Gap 11 MEQ/L 10 MEQ/L Estimat Glomerular Filtration Rate 51 ML/MIN 74 ML/MIN Lactic Acid Level 2.3 mmol/L 1.4 mmol/L Total Creatine Kinase 86 U/L Troponin I LESS THAN 0.02 NG/ML Thyroid Stimulating Hormone 3rd Gen 1.250 uIU/ML Urine Color YELLOW Urine Turbidity CLEAR Urine pH 5.5 Urine Specific [place] 1.015 Urine Protein NEG mg/dL Urine Glucose (UA) TRACE mg/dL Urine Ketones NEG mg/dL Urine Occult Blood NEG Urine Nitrite NEG Urine Bilirubin NEG Urine Urobilinogen LESS THAN 2.0 MG/DL Urine Leukocyte Esterase NEG Urine RBC LESS THAN 1 /hpf Urine WBC LESS THAN 1 /hpf Microscopic Urinalysis Comment CULT NOT INDICATED Triglycerides Level 107 MG/DL Cholesterol Level 87 MG/DL LDL Cholesterol 28 MG/DL HDL Cholesterol 37.6 MG/DL Cholesterol/HDL Ratio 2.31 RATIO Amylase Level 55 U/L Lipase 274 U/L Test 10/23/17 11:26 Hepatitis A IgM Antibody NONREACTIVE Hepatitis B Surface Antigen NONREACTIVE Hepatitis B Core IgM Antibody NONREACTIVE Hepatitis C IgG Antibody NONREACTIVE Date/Time Source Procedure Growth Status 10/22/17 17:45 Blood Peripheral Aerobic Blood Culture - Preliminary NO GROWTH IN 1 DAY Resulted 10/22/17 17:45 Blood Peripheral Anaerobic Blood Culture - Preliminary NO GROWTH IN 1 DAY Resulted 10/23/17 06:30 Nasal Aspirate Influenza Types A,B Antigen ([facility]) - Final NEGATIVE FOR FLU A AND B ANTIGEN.... Complete Physical Examination HEENT: Normocephalic; atraumatic CHEST: Even/unlabored CARDIAC: RRR ABDOMEN: Soft, nondistended, nontender; bowel sounds active EXTREMITIES: No clubbing, cyanosis, or edema. SKIN: Normal; no rash; no jaundice. 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 (Isabel Meeks) Assessment and Plan Plan Assessment: - Elevated LFTs On admission AST-101 ALT-166 Alk phos-318 T bili-0.7 GB US (10/22) Echogenic liver. Prominent gallbladder without stones or gallbladder wall thickening. Pt denies history of liver issues. Does report having a previous stent in her CBD for stone. ERCP with stent placement in December S/P removal of stent in February. Denies family history of liver issues. Takes [place] 3 and B12 OTC. Denies any other OTC herbs or supplements , denies any new prescription medications. Takes Hydrocodone/Acetaminophen 10/325- 4 tabs daily denies any addition Tylenol use. ETOH-2 beers a day. Denies history of IVDU , previous blood transfusion, recent travel. Complaining of: weakness and chills that began yesterday Denies: nausea, vomiting, abdominal pain and swelling, acid reflux and heartburn, changes in bowel habits, unintentional weight loss - Anemia, normocytic Recent work up by GI doctor in [place] 3 months ago, pt states he moved here 5 weeks ago. States both EGD and colonoscopy were normal exams. - Pt on Creon- he denies known history of pancreatitis or pancreatic insufficiency Plan: Liver M[facility]ILLAN EBV Avoid hepatotoxins CT abdomen and pelvis W IV contrast Monitor labs Further recommendations based on clinical course Pt has been seen and examined by myself and Dr. Abdi and this note is written on his behalf (Isabel Meeks) Physician Comments Seen and examined, plan as above. Will follow up with you pending workup findings. Thank you for the consult. (Kristin Abdi MD) Isabel Meeks Oct 23, 2017 16:12 Kristin Abdi MD Oct 25, 2017 10:14
[2017-10-23 16:14] LABS: % SATURATION IRON PROFILE 9.8 % (20-50); IRON (FE) 30 MCG/DL (65-175); TOTAL IRON BINDING CAPACITY 307 MCG/DL (250-450)
[2017-10-23 16:17] LABS: FERRITIN 117 NG/ML (26-388)
[2017-10-23] MEDS ORDERED: IOHEXOL 350 MG/ML 10 ML VIAL (for RAD DIAG) IVCONTRAST ONE (17:09)
--- NOTE | 2017-10-23 17:49 | RADRPT ---
EXAM DATE: 10/23/2017 5:10 PM EDT AGE/SEX: 72 years / Male INDICATIONS: Elevated LFTs, fever. CLINICAL DATA: This is the patient's initial encounter. Patient reports that signs and symptoms have been present for 1 day and indicates a pain score of 0/10. MEDICAL/SURGICAL HISTORY: Pancreatitis. Hypertension. . ERCP with stent placement S/P removal of stent ORAL CONTRAST: Prescribed oral contrast ingested. RADIATION DOSE: 21.99 CTDI (mGy) COMPARISON: No prior exams available for comparison. TECHNIQUE: Multiple contiguous axial images were obtained through the abdomen and pelvis following b olus infusion of 89 ml Omnipaque 350 (iohexol) nonionic water-soluble contrast as a single exam dos e. Prescribed oral contrast ingested. Using automated exposure control and adjustment of the mA and/ or kV according to patient size, the radiation dose was kept as low as reasonably achievable to obtai n optimal diagnostic quality images. FINDINGS: Lung bases are clear. Mild cardiomegaly is noted. The liver is abnormal with pneumobilia and air in the gallbladder. Air does extend into the common du ct. Minimal calcifications are seen in the pancreas consistent with a calcific pancreatitis. Spleen a ppears normal. Adrenals and kidneys appear normal. There is no evidence for small bowel obstruction. In the pelvis there are diverticuli in sigmoid colon without inflammatory changes. Bladder is unremar kable. Degenerative changes are seen in the lower lumbar spine. CONCLUSION: 1. Pneumobilia in this patient had a biliary stent placed and removed. Findings can be seen with cho langitis. 2. There is no obstruction. There is no evidence for liver abscess. 3. Findings consistent with chronic pancreatitis. Electronically signed by: Stefan Woodward MD 10/23/2017 5:48 PM EDT
[2017-10-23 20:00] VITALS: BP_SYST 130; BP_SYST 144; BP_SYST 149; BP_DIAS 63; BP_DIAS 65; PULSE 48; RESP 20; TEMP 97.9; O2SAT 98
[2017-10-24] VITALS (7 sets, daily range): BP systolic 126–168; BP diastolic 62–77; PULSE 42–58; RESP 17–18; TEMP 97.8–98.8; O2SAT 95–98
[2017-10-24] MEDS: PIPERACIL-TAZO 3.375 GM PREMIX 50 ML IV SCH ×5 (00:32→23:28)
[2017-10-24] MEDS: HEPARIN SODIUM - SQ 10,000 UNITS/ML VIAL SQ SCH ×3 (06:13→20:56)
[2017-10-24] MEDS: INSULIN ASPART SUPPLEMENTAL SCALE SQ SCH ×4 (08:00→21:00)
[2017-10-24] MEDS: LIPASE/PROTEASE/AMYLASE (24,000/76,000/120,000) CAP PO SCH ×2 (09:00→20:58)
[2017-10-24] MEDS: ATENOLOL 25 MG TAB PO SCH ×2 (09:00→20:58)
[2017-10-24] MEDS: SODIUM CHLORIDE 0.9% FLUSH 10 ML FLUSH IV FLUSH SCH ×2 (09:32→21:03)
[2017-10-24] MEDS: DULoxetine HCl DR 60 MG CAP PO SCH (09:33)
[2017-10-24] MEDS: LOSARTAN 50 MG TAB PO SCH (09:33)
[2017-10-24] MEDS: SODIUM CHLOR 0.9% 1000 ML INJ 1,000 ML IV SCH ×2 (09:35→21:01)
--- NOTE | 2017-10-24 12:02 | RADRPT ---
EXAM DATE: 10/24/2017 11:45 AM EDT AGE/SEX: 72 years / Male INDICATIONS: Obstruction. Elevated LFT's. CLINICAL DATA: This is the patient's subsequent encounter. Patient reports that signs and symptoms h ave been present for 3 days and indicates a pain score of 3/10. MEDICAL/SURGICAL HISTORY: Hypertension. Diabetes. Anxiety. Depression. Fusion, lumbar. Umbi lical hernia repair. Tonsillectomy. Hand/finger surgery. COMPARISON: No prior exams available for comparison. TECHNIQUE: Multiplanar, multisequence images of the abdomen were obtained without contrast including dedicated cholangiographic images. FINDINGS: Liver: The liver is homogeneous and normal in signal intensity with no focal defects. Intrahepatic Bile Ducts: There is no intrahepatic biliary ductal dilatation. Small amount of air is identified within the intrahepatic biliary radicles. Common Bile Duct: The common bile duct is the upper limits of normal in caliber measuring 7 mm. Very small faint filling defects within the common bile duct. It is uncertain whether this represents air or small stones. Gallbladder: Gallbladder contains a small amount of air. Small gallstones are noted. There is minima l wall thickening and edema. Pancreas: The pancreas appears normal in signal with no focal parenchymal abnormalities. The main pa ncreatic duct from the body to the tail is mildly distended and slightly irregular in appearance. Mul tiple side branch duct dilatations. CONCLUSION: 1. Small amount of air identified in the intrahepatic biliary tree and gallbladder. 2. Small gallstones and probable small stones within the common bile duct. 3. Common bile duct is at the upper limits of normal in caliber measuring 7 mm. There is no signific ant intrahepatic biliary distention. 4. Mild gallbladder wall thickening and edema. 5. Normal pancreatic duct with side branch dilatations. This appearance can be seen in patients with a history of chronic pancreatitis. Electronically signed by: Arturo Ng MD 10/24/2017 12:01 PM EDT
--- NOTE | 2017-10-24 14:01 | HHI.GIFU ---
Subjective Remarks Pt resting in bed S/P MRCP today Reports he is hungry Denies nausea, vomiting, abdominal pain (Isabel Meeks) Objective Vitals I&O Vital Signs Date Time Temp Pulse Resp B/P (MAP) Pulse Ox O2 Delivery O2 Flow Rate FiO2 10/24/17 12:00 98.0 51 17 146/69 (94) 98 10/24/17 08:00 98.6 42 17 160/72 (101) 97 142/62 (88) 142/68 (92) 10/24/17 04:00 98.0 44 18 126/68 (87) 96 10/24/17 00:00 97.8 55 18 136/70 (92) 96 10/23/17 20:00 97.9 48 20 149/65 (93) 98 144/63 (90) 130/65 (86) 10/23/17 16:00 97.7 60 18 149/69 (95) 98 I/O 10/23/17 10/23/17 10/23/17 10/24/17 10/24/17 10/24/17 07:00 15:00 23:00 07:00 15:00 23:00 Intake Total 50 ml 3076 ml 290 ml 50 ml Output Total 600 ml 1800 ml 400 ml Balance -600 ml 50 ml 1276 ml -110 ml 50 ml Intake Oral 2026 ml 240 ml IV Total 50 ml 1050 ml 50 ml 50 ml Output Urine Total 600 ml 1800 ml 400 ml # Bowel Movements 2 0 Laboratory Laboratory Tests Test 10/23/17 16:05 10/23/17 20:05 Date/Time Source Procedure Growth Status 10/22/17 17:45 Blood Peripheral Aerobic Blood Culture - Preliminary NO GROWTH IN 2 DAYS Resulted 10/22/17 17:45 Blood Peripheral Anaerobic Blood Culture - Preliminary NO GROWTH IN 2 DAYS Resulted 10/23/17 06:30 Nasal Aspirate Influenza Types A,B Antigen ([facility]) - Final NEGATIVE FOR FLU A AND B ANTIGEN.... Complete Imaging Last Impressions Cholangiopancreatography MRI 10/24/17 0000 Signed Impressions: CONCLUSION: 1. Small amount of air identified in the intrahepatic biliary tree and gallbla dder. 2. Small gallstones and probable small stones within the common bile duct. 3. Common bile duct is at the upper limits of normal in caliber measuring 7 mm . There is no significant intrahepatic biliary distention. 4. Mild gallbladder wall thickening and edema. 5. Normal pancreatic duct with side branch dilatations. This appearance can be seen in patients with a history of chronic pancreatitis. Abdomen/Pelvis CT 10/23/17 0000 Signed Impressions: CONCLUSION: 1. Pneumobilia in this patient had a biliary stent placed and removed. Finding s can be seen with cholangitis. 2. There is no obstruction. There is no evidence for liver abscess. 3. Findings consistent with chronic pancreatitis. Head CT 10/22/171717 Signed Impressions: CONCLUSION: 1. Negative for an acute process. Chest X-Ray 10/22/171717 Signed Impressions: CONCLUSION: Mild interstitial prominence involving the bases. This could relate to early pulmonary edema. Gall Bladder Ultrasound 10/22/17 0000 Signed Impressions: CONCLUSION: 1. Echogenic liver 2. Prominent gallbladder without stones or gallbladder wall thickening. Physical Exam HEENT: Normocephalic; atraumatic CHEST: Even/unlabored CARDIAC: RRR ABDOMEN: Soft, nondistended, nontender; bowel sounds active EXTREMITIES: No clubbing, cyanosis, or edema. SKIN: Normal; no rash; no jaundice. [employer]SE: Alert and oriented times three. (Isabel Meeks) Assessment and Plan Plan Assessment: - Elevated LFTs On admission AST-101 ALT-166 Alk phos-318 T bili-0.7 GB US (10/22) Echogenic liver. Prominent gallbladder without stones or gallbladder wall thickening. Pt denies history of liver issues. Does report having a previous stent in her CBD for stone. ERCP with stent placement in December S/P removal of stent in February. Denies family history of liver issues. Takes [place] 3 and B12 OTC. Denies any other OTC herbs or supplements , denies any new prescription medications. Takes Hydrocodone/Acetaminophen 10/325- 4 tabs daily denies any addition Tylenol use. ETOH-2 beers a day. Denies history of IVDU , previous blood transfusion, recent travel. Complaining of: weakness and chills that began yesterday Denies: nausea, vomiting, abdominal pain and swelling, acid reflux and heartburn, changes in bowel habits, unintentional weight loss - Anemia, normocytic Recent work up by GI doctor in [place] 3 months ago, pt states he moved here 5 weeks ago. States both EGD and colonoscopy were normal exams. - Chronic pancreatitis- Pt on Creon (10/24) Elevated LFTs likely secondary to choledocholithiasis. Fever consistent with acute cholangitis, pt is on Zosyn. MRCP --> Small amount of air identified in the intrahepatic biliary tree and gallbladder. Small gallstones and probable small stones within the common bile duct. Common bile duct is at the upper limits of normal in caliber measuring 7 mm. There is no significant intrahepatic biliary distention. Mild gallbladder wall thickening and edema. Normal pancreatic duct with side branch dilatations. This appearance can be seen in patients with a history of chronic pancreatitis. Plan: ERCP tomorrow Obtain consent NPO after MN Continue Zosyn Monitor LFTs Further recommendations based on clinical course Pt has been seen and examined by myself and Dr. Abdi and this note is written on his behalf (Isabel Meeks) Physician Comments Seen and examined, will proceed with ERCP. Consent obtained, further recommendations to follow. (Kristin Abdi MD) Isabel Meeks Oct 24, 2017 14:01 Kristin Abdi MD Oct 25, 2017 10:50
--- NOTE | 2017-10-24 14:05 | HHI.PR ---
Subjective Remarks Resting comfortably in bed No event overnight Denied chest and or short of breath No fever or chills Objective Vitals Vital Signs Date Time Temp Pulse Resp B/P (MAP) Pulse Ox O2 Delivery O2 Flow Rate FiO2 10/24/17 12:00 98.0 51 17 146/69 (94) 98 10/24/17 08:00 98.6 42 17 160/72 (101) 97 142/62 (88) 142/68 (92) 10/24/17 04:00 98.0 44 18 126/68 (87) 96 10/24/17 00:00 97.8 55 18 136/70 (92) 96 10/23/17 20:00 97.9 48 20 149/65 (93) 98 144/63 (90) 130/65 (86) 10/23/17 16:00 97.7 60 18 149/69 (95) 98 I/O 10/23/17 10/23/17 10/23/17 10/24/17 10/24/17 10/24/17 07:00 15:00 23:00 07:00 15:00 23:00 Intake Total 50 ml 3076 ml 290 ml 50 ml Output Total 600 ml 1800 ml 400 ml Balance -600 ml 50 ml 1276 ml -110 ml 50 ml Intake Oral 2026 ml 240 ml IV Total 50 ml 1050 ml 50 ml 50 ml Output Urine Total 600 ml 1800 ml 400 ml # Bowel Movements 2 0 Result Diagram: 10/23/17 0842 10/23/17 0842 Objective Remarks GENERAL: This is a well-nourished, well-developed patient, in no apparent distress. CARDIOVASCULAR: RRR, no gallops, or rubs. RESPIRATORY: Fair air entry bilaterally. No W, R, or R GASTROINTESTINAL: Abdomen soft, non-tender, nondistended. Positive bowel sounds MUSCULOSKELETAL: Extremities without clubbing, cyanosis, or edema. Pedal pulses appreciated NEUROLOGICAL: Awake and alert. Moves all extremity. Normal speech.no focal neurological deficit A/P Assessment and Plan 10/23: Fever resolved we will continue monitoring LFT, creatinine increased to 1.3>> I will order hepatitis panel, CT of the abdomen without contrast, will request records from PCP in [place], consider ID consultation Will order liver workup with ferritin, SONIYA, ASMA 10/24: Appreciate GI consultation patient had a CT abdomen with contrast yesterday which showed Pneumobilia possible cholangitis, findings consistent with chronic pancreatitis Also patient had MRCP which showed, small amount of air intrahepatic biliary tree small gallstones probably within the CBD,, CBD at the upper limits of normal 7 mm, mild gallbladder wall thickening and edema D/W [facility] [employer] plan to go for ERCP tomorrow, rest of the liver workup pending A/P: 1. SIRS Patient with fever, tachycardia and elevated lactic acid Chest x-ray significant for mild interstitial prominence in the bases, personally reviewed No leukocytosis UA negative Flu pending Blood cultures pending Zosyn 2. Transaminitis AST/ALT 101/[address] abdomen with contrast yesterday which showed Pneumobilia possible cholangitis , findings consistent with chronic pancreatitis Liver failure workup, GI consultation MRCP which showed, small amount of air intrahepatic biliary tree small gallstones probably within the CBD,, CBD at the upper limits of normal 7 mm, mild gallbladder wall thickening and edema 3. Diabetes mellitus Holding home metformin Sliding-scale insulin Monitor blood glucose 4. Hypertension/hyperlipidemia/anxiety/depression Continue home medications 5. AK I BUN/creatinine 21/1.37 IV fluid hydration Monitor renal function FEN Heart healthy diet Electrolytes: Monitor and replete as needed NS at 100 cc/hour Heparin Yung Marshall MD Oct 24, 2017 14:05
[2017-10-24] MEDS: ACETAMINOPHEN/HYDROcodone 325 MG/5 MG TAB PO PRN ×2 (18:39→23:27)
[2017-10-24] MEDS: ATORVASTATIN 80 MG TAB PO SCH (20:57)
[2017-10-25] VITALS (7 sets, daily range): BP systolic 125–161; BP diastolic 59–92; PULSE 49–67; RESP 17–18; TEMP 97.9–98.6; O2SAT 96–98
[2017-10-25 01:54] LABS: EBV VCA IgM Negative (Negative)
[2017-10-25] MEDS: HEPARIN SODIUM - SQ 10,000 UNITS/ML VIAL SQ SCH ×3 (05:02→20:18)
[2017-10-25] MEDS: PIPERACIL-TAZO 3.375 GM PREMIX 50 ML IV SCH ×3 (05:11→18:05)
[2017-10-25] MEDS: ACETAMINOPHEN/HYDROcodone 325 MG/5 MG TAB PO PRN ×3 (05:11→20:18)
[2017-10-25] MEDS ORDERED: SODIUM CHLORID 0.9% 500 ML IV PRN (07:00)
[2017-10-25] MEDS ORDERED: POVIDONE IODINE 5% (ANTISEPSIS KIT) 4 APPLICATIONS EACH NARE PRN (07:00)
[2017-10-25] MEDS ORDERED: LACTATED RINGER'S 1000 ML IV PRN (07:00)
[2017-10-25] MEDS ORDERED: CHLORHEXIDINE GLUCONATE 2 % 1 PACK (2 CLOTHS) TOPICAL PRN (07:00)
[2017-10-25] MEDS: INSULIN ASPART SUPPLEMENTAL SCALE SQ SCH ×4 (08:00→21:30)
[2017-10-25] MEDS: ATENOLOL 25 MG TAB PO SCH ×3 (09:00→20:18)
[2017-10-25] MEDS: LIPASE/PROTEASE/AMYLASE (24,000/76,000/120,000) CAP PO SCH ×2 (09:00→20:17)
[2017-10-25] MEDS: SODIUM CHLORIDE 0.9% FLUSH 10 ML FLUSH IV FLUSH SCH ×2 (09:00→20:22)
[2017-10-25] MEDS: DULoxetine HCl DR 60 MG CAP PO SCH (09:20)
[2017-10-25] MEDS: LOSARTAN 50 MG TAB PO SCH (09:20)
[2017-10-25] MEDS: SODIUM CHLOR 0.9% 1000 ML INJ 1,000 ML IV SCH ×2 (09:21→18:06)
[2017-10-25] MEDS ORDERED: ONDANSETRON HCL 4 MG/2 ML VIAL IV ONE (12:00)
[2017-10-25] MEDS ORDERED: LIDOCAINE HCL 1% PF 5 ML SYRINGE OTHER ONE (12:00)
[2017-10-25] MEDS ORDERED: ESMOLOL HCL 100 MG/10 ML VIAL IV ONE (12:00)
[2017-10-25] MEDS ORDERED: GLYCOPYRROLATE 1 MG/5 ML SYRINGE IV PUSH ONE (12:00)
[2017-10-25] MEDS ORDERED: PROPOFOL 200 MG/20 ML AMP IV ONE (12:00)
[2017-10-25] MEDS ORDERED: ROCURONIUM INJ 50 MG/5 ML SYRINGE IV PUSH ONE (12:00)
[2017-10-25] MEDS ORDERED: NEOSTIGMINE 5 MG/5 ML SYRINGE IV PUSH ONE (12:00)
[2017-10-25] MEDS ORDERED: PROPOFOL 500 MG/50 ML INJ 0 ML ONE (12:44)
--- NOTE | 2017-10-25 13:45 | GIPROC ---
[facility] [address] [facility]. [facility], [address] ERCP PROCEDURE REPORT EXAM DATE: 10/25/2017 PATIENT NAME: Danie Velazquez MR #: [id number] BIRTHDATE: 1945 ATTENDING: Kristin Abdi MD ORDER #: [id number] DEMURRAGE MAN: Sia Garza and Beverley Bah STATUS: inpatient INDICATIONS: The patient is a 72 yr old male here for an ERCP due to established bile duct stone(s) PROCEDURE PERFORMED: ERCP with removal of calculus/calculi MEDICATIONS: None and Per Anesthesia. CONSENT: The patient understands the risks and benefits of the procedure and understands that these risks include, but are not limited to: sedation, allergic reaction, infection, perforation and/or bleeding. Alternative means of evaluation and treatment include, among others: physical exam, x-rays, and/or surgical intervention. The patient elects to proceed with this endoscopic procedure. medical equipment was checked for proper function. Hand hygiene and appropriate measures for infection prevention was taken. After the risks, benefits and alternatives of the procedure were thoroughly explained, Informed was verified, confirmed and timeout was successfully executed by the treatment team. With the patient in left semi-prone position, medications were administered intravenously.The Pentax [id number] was passed from the mouth into the esophagus and further advanced from the esophagus into the stomach. From stomach scope was directed to the second portion of the duodenum. Major papilla was aligned with the duodenoscope. The scope position was confirmed fluoroscopically. Rest of the findings/therapeutics are given below. The scope was then completely withdrawn from the patient and the procedure completed. The pulse, BP, and O2 saturation were monitored and documented by the physician and the nursing staff throughout the entire procedure. The patient was cared for as planned according to standard protocol. The patient was then discharged to recovery in stable condition and with appropriate post procedure care. The ampulla was located the second portion of the duodenum. There was evidence of prior sphincterotomy. There was a dilation of the CBD. Multiple stones were seen in the mid common bile duct. Contrast was injected into the bile duct and a cholangiogram obtained. Using a stone extraction balloon the bile duct was swept three times. Four stones were removed from the bile duct successfully. ADVERSE EVENT: There were no complications. IMPRESSIONS: - The ampulla revealed a prior sphincterotomy - There was a dilation of the CBD. - Multiple stones were seen in the mid common bile duct. Contrast was injected into the bile duct and a cholangiogram obtained. Using a stone extraction balloon the bile duct was swept three times. - Four stones were removed from the bile duct successfully RECOMMENDATIONS: No treatment REPEAT EXAM: NONE Kristin Abdi MD eSigned: Kristin Abdi MD 10/25/2017 1:45 PM cc: PATIENT NAME: Danie Velazquez MR#: [id number]
[2017-10-25] MEDS ORDERED: DO NOT ADM ANY ANTICOAGULANT DRUGS PRN (14:15)
--- NOTE | 2017-10-25 14:24 | RADRPT ---
EXAM DATE: 10/25/2017 1:57 PM EDT AGE/SEX: 72 years / Male INDICATIONS: ERCP. CLINICAL DATA: This is the patient's initial encounter. Patient reports that signs and symptoms have been present for 1 day and indicates a pain score of Nonresponsive. MEDICAL/SURGICAL HISTORY: Non-responsive. Non-responsive. COMPARISON: No prior exams available for comparison. FINDINGS: An ERCP was performed by the ordering physician. 2 spot views are presented for interpretation. The f irst image shows contrast within the common bile duct and to a lesser degree the common hepatic ducts . The scope obscures the lower common bile duct. No filling defects observed within the visualized po rtions of the opacified biliary system. Second image shows a wire little contrast within the biliary system. Contrast is noted within the duodenum. CONCLUSION: Limited images detailed above. Electronically signed by: Davide Justice MD 10/25/2017 2:23 PM EDT
[2017-10-25 14:34] LABS: SMOOTH MUSCLE TOTAL AUTOABS Negative (Negative)
[2017-10-25] MEDS: ACYCLOVIR 5% OINT 15 APPLIC/15 GM TUBE TOPICAL SCH ×3 (15:22→20:23)
[2017-10-25 15:30] LABS: ALPHA-1-ANTITRYPSIN 152 mg/dL (100 - 190)
--- NOTE | 2017-10-25 15:31 | HHI.PR ---
Subjective Remarks Patient complaint of cold sores on his lips today He is going for ERCP, no other complain Objective Vitals Vital Signs Date Time Temp Pulse Resp B/P (MAP) Pulse Ox O2 Delivery O2 Flow Rate FiO2 10/25/17 14:15 97.5 55 14 171/69 (103) 99 Room Air 10/25/17 14:00 97.5 73 14 139/57 (84) 100 Room Air 10/25/17 13:48 97.5 69 14 157/74 (101) 100 Nasal Cannula 4 10/25/17 09:26 53 10/25/17 08:00 98.1 67 18 161/92 (115) 97 10/25/17 04:53 98.2 52 17 125/59 (81) 96 10/25/17 00:11 98.3 54 17 155/72 (99) 98 10/24/17 20:22 98.8 58 18 142/68 (92) 95 10/24/17 20:00 48 10/24/17 16:00 98.4 55 18 168/77 (107) 98 I/O 10/24/17 10/24/17 10/24/17 10/25/17 10/25/17 10/25/17 07:00 15:00 23:00 07:00 15:00 23:00 Intake Total 290 ml 100 ml 2950 ml 50 ml 900 ml Output Total 400 ml 900 ml Balance -110 ml 100 ml 2050 ml 50 ml 900 ml Intake Oral 240 ml 1900 ml IV Total 50 ml 100 ml 1050 ml 50 ml Other 900 ml Output Urine Total 400 ml 900 ml # Voids 3 # Bowel Movements 0 2 Result Diagram: 10/23/1742 10/23/1742 Objective Remarks GENERAL: This is a well-nourished, well-developed patient, in no apparent distress. CARDIOVASCULAR: RRR, no gallops, or rubs. RESPIRATORY: Fair air entry bilaterally. No W, R, or R GASTROINTESTINAL: Abdomen soft, non-tender, nondistended. Positive bowel sounds MUSCULOSKELETAL: Extremities without clubbing, cyanosis, or edema. Pedal pulses appreciated NEUROLOGICAL: Awake and alert. Moves all extremity. Normal speech.no focal neurological deficit A/P Assessment and Plan 10/23: Fever resolved we will continue monitoring LFT, creatinine increased to 1.3>> I will order hepatitis panel, CT of the abdomen without contrast, will request records from PCP in [place], consider ID consultation Will order liver workup with ferritin, SONIYA, ASMA 10/24: Appreciate GI consultation patient had a CT abdomen with contrast yesterday which showed Pneumobilia possible cholangitis, findings consistent with chronic pancreatitis Also patient had MRCP which showed, small amount of air intrahepatic biliary tree small gallstones probably within the CBD,, CBD at the upper limits of normal 7 mm, mild gallbladder wall thickening and edema 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 SIRS Patient with fever, tachycardia and elevated lactic acid Chest x-ray significant for mild interstitial prominence in the bases, personally reviewed No leukocytosis UA negative Flu pending Blood cultures pending Zosyn 2. Transaminitis AST/ALT 101/[address] abdomen with contrast yesterday which showed Pneumobilia possible cholangitis , findings consistent with chronic pancreatitis Liver failure workup, GI consultation MRCP which showed, small amount of air intrahepatic biliary tree small gallstones probably within the CBD,, CBD at the upper limits of normal 7 mm, mild gallbladder wall thickening and edema 3. Diabetes mellitus Holding home metformin Sliding-scale insulin Monitor blood glucose 4. Hypertension/hyperlipidemia/anxiety/depression Continue home medications 5. AK I BUN/creatinine 21/1.37 IV fluid hydration Monitor renal function FEN Heart healthy diet Electrolytes: Monitor and replete as needed NS at 100 cc/hour Heparin Yung Marshall MD Oct 25, 2017 15:31
[2017-10-25] MEDS: ATORVASTATIN 80 MG TAB PO SCH (20:18)
[2017-10-26] VITALS (10 sets, daily range): BP systolic 136–164; BP diastolic 62–70; PULSE 42–90; RESP 16–20; TEMP 97.9–98.7; O2SAT 95–98
[2017-10-26] MEDS: PIPERACIL-TAZO 3.375 GM PREMIX 50 ML IV SCH ×5 (00:10→22:50)
[2017-10-26] MEDS: ACETAMINOPHEN/HYDROcodone 325 MG/5 MG TAB PO PRN ×6 (00:11→22:50)
[2017-10-26] MEDS: SODIUM CHLOR 0.9% 1000 ML INJ 1,000 ML IV SCH ×2 (00:12→15:57)
[2017-10-26] MEDS: ACYCLOVIR 5% OINT 15 APPLIC/15 GM TUBE TOPICAL SCH ×5 (05:54→20:55)
[2017-10-26] MEDS: HEPARIN SODIUM - SQ 10,000 UNITS/ML VIAL SQ SCH ×3 (05:54→20:54)
[2017-10-26] MEDS: INSULIN ASPART SUPPLEMENTAL SCALE SQ SCH ×4 (08:00→20:54)
[2017-10-26] MEDS: ATENOLOL 25 MG TAB PO SCH ×2 (09:00→20:53)
[2017-10-26] MEDS: DULoxetine HCl DR 60 MG CAP PO SCH (09:38)
[2017-10-26] MEDS: LOSARTAN 50 MG TAB PO SCH (09:38)
[2017-10-26] MEDS: LIPASE/PROTEASE/AMYLASE (24,000/76,000/120,000) CAP PO SCH ×2 (09:38→20:53)
[2017-10-26] MEDS: SODIUM CHLORIDE 0.9% FLUSH 10 ML FLUSH IV FLUSH SCH ×2 (09:39→20:54)
[2017-10-26 14:02] LABS: ALBUMIN 2.9 GM/DL (3.4-5.0); ALT (GPT) 80 U/L (12-78); AST (GOT) 36 U/L (15-37); BICARBONATE 23.4 MEQ/L (21.0-32.0); BLOOD UREA NITROGEN 5 MG/DL (7-18); CALCIUM 8.9 MG/DL (8.5-10.1); CHLORIDE 112 MEQ/L (98-107); CREATININE 0.96 MG/DL (0.60-1.30); GLOMERULAR FILTRATION RATE 77 ML/MIN (>89); GLUCOSE,RANDOM 178 MG/DL (74-106); SODIUM (NA) 144 MEQ/L (136-145)
[2017-10-26 14:04] LABS: ALKALINE PHOSPHATASE 196 U/L (45-117); TOTAL BILIRUBIN ADULT 0.3 MG/DL (0.2-1.0)
--- NOTE | 2017-10-26 15:54 | HHI.PR ---
Subjective Remarks "Need to get my gallbladder out " No abdominal pain no nausea or vomiting afebrile Patient had an ERCP which extracted for stones, repeat CMP and follow daily Will need cholecystectomy Objective Vitals Vital Signs Date Time Temp Pulse Resp B/P (MAP) Pulse Ox O2 Delivery O2 Flow Rate FiO2 10/26/17 12:00 98.7 50 18 150/67 (94) 95 10/26/17 12:00 45 10/26/17 08:00 42 10/26/17 08:00 97.9 45 16 164/70 (101) 98 10/26/17 04:19 98.2 50 16 138/63 (88) 96 10/26/17 04:00 42 10/26/17 00:05 98.3 53 17 136/62 (86) 96 10/26/17 00:00 45 10/25/17 20:18 98.6 52 17 152/71 (98) 97 10/25/17 20:00 52 10/25/17 16:00 97.9 49 18 158/72 (100) 96 I/O 10/25/17 10/25/17 10/25/17 10/26/17 10/26/17 10/26/17 07:00 15:00 23:00 07:00 15:00 23:00 Intake Total 50 ml 900 ml 515 ml 1880 ml Balance 50 ml 900 ml 515 ml 1880 ml Intake Oral 780 ml IV Total 50 ml 515 ml 1100 ml Other 900 ml # Voids 3 3 # Bowel Movements 1 Result Diagram: 10/23/17 0842 10/26/17 1315 Objective Remarks GENERAL: This is a well-nourished, well-developed patient, in no apparent distress. CARDIOVASCULAR: RRR, no gallops, or rubs. RESPIRATORY: Fair air entry bilaterally. No W, R, or R GASTROINTESTINAL: Abdomen soft, non-tender, nondistended. Positive bowel sounds MUSCULOSKELETAL: Extremities without clubbing, cyanosis, or edema. Pedal pulses appreciated NEUROLOGICAL: Awake and alert. Moves all extremity. Normal speech.no focal neurological deficit A/P Assessment and Plan 10/23: Fever resolved we will continue monitoring LFT, creatinine increased to 1.3>> I will order hepatitis panel, CT of the abdomen without contrast, will request records from PCP in [place], consider ID consultation Will order liver workup with ferritin, SONIYA, ASMA 10/24: Appreciate GI consultation patient had a CT abdomen with contrast yesterday which showed Pneumobilia possible cholangitis, findings consistent with chronic pancreatitis Also patient had MRCP which showed, small amount of air intrahepatic biliary tree small gallstones probably within the CBD,, CBD at the upper limits of normal 7 mm, mild gallbladder wall thickening and edema 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 SIRS Patient with fever, tachycardia and elevated lactic acid Chest x-ray significant for mild interstitial prominence in the bases, personally reviewed No leukocytosis UA negative Flu pending Blood cultures pending Zosyn 2. Transaminitis AST/ALT 101/[address] abdomen with contrast yesterday which showed Pneumobilia possible cholangitis , findings consistent with chronic pancreatitis Liver failure workup, GI consultation MRCP which showed, small amount of air intrahepatic biliary tree small gallstones probably within the CBD,, CBD at the upper limits of normal 7 mm, mild gallbladder wall thickening and edema 3. Diabetes mellitus Holding home metformin Sliding-scale insulin Monitor blood glucose 4. Hypertension/hyperlipidemia/anxiety/depression Continue home medications 5. AK I BUN/creatinine 21/1.37 IV fluid hydration Monitor renal function FEN Heart healthy diet Electrolytes: Monitor and replete as needed NS at 100 cc/hour Heparin Yung Marshall MD Oct 26, 2017 15:54
--- NOTE | 2017-10-26 16:27 | HHI.GIFU ---
Subjective Remarks Patient is resting in the bed no acute nausea vomiting or abdominal pain Status post ERCP on 10/25/2017 with 4 stones removed Afebrile Appetite good (Angela Paredes) Objective Vitals I&O Vital Signs Date Time Temp Pulse Resp B/P (MAP) Pulse Ox O2 Delivery O2 Flow Rate FiO2 10/26/17 12:00 98.7 50 18 150/67 (94) 95 10/26/17 12:00 45 10/26/17 08:00 42 10/26/17 08:00 97.9 45 16 164/70 (101) 98 10/26/17 04:19 98.2 50 16 138/63 (88) 96 10/26/17 04:00 42 10/26/17 00:05 98.3 53 17 136/62 (86) 96 10/26/17 00:00 45 10/25/17 20:18 98.6 52 17 152/71 (98) 97 10/25/17 20:00 52 I/O 10/25/17 10/25/17 10/25/17 10/26/17 10/26/17 10/26/17 06:59 14:59 22:59 06:59 14:59 22:59 Intake Total 50 ml 900 ml 515 ml 1880 ml Balance 50 ml 900 ml 515 ml 1880 ml Intake Oral 780 ml IV Total 50 ml 515 ml 1100 ml Other 900 ml # Voids 3 3 # Bowel Movements 1 Laboratory Laboratory Tests Test 10/26/17 13:15 Blood Urea Nitrogen 5 Creatinine 0.96 Random Glucose 178 Total Protein 6.0 Albumin 2.9 Calcium Level 8.9 Alkaline Phosphatase 196 Aspartate Amino Transf (AST/SGOT) 36 Alanine Aminotransferase (ALT/SGPT) 80 Total Bilirubin 0.3 Sodium Level 144 Potassium Level 3.9 Chloride Level 112 Carbon Dioxide Level 23.4 Anion Gap 9 Estimat Glomerular Filtration Rate 77 Date/Time Source Procedure Growth Status 10/22/17 17:45 Blood Peripheral Aerobic Blood Culture - Preliminary NO GROWTH IN 4 DAYS Resulted 10/22/17 17:45 Blood Peripheral Anaerobic Blood Culture - Preliminary NO GROWTH IN 4 DAYS Resulted 10/23/17 06:30 Nasal Aspirate Influenza Types A,B Antigen (CHRIS) - Final NEGATIVE FOR FLU A AND B ANTIGEN.... Complete Physical Exam HEENT: Normocephalic; atraumatic mild obesity CHEST: Even/unlabored CARDIAC: RRR ABDOMEN: Soft, nondistended, nontender; bowel sounds active EXTREMITIES: No clubbing, cyanosis, or edema. SKIN: Normal; no rash; no jaundice. DENTAL CERAMIST: Alert and oriented times three. (Angela Paredes) Assessment and Plan Plan Assessment: - Elevated LFTs On admission AST-101 ALT-166 Alk phos-318 T bili-0.7 GB US (10/22) Echogenic liver. Prominent gallbladder without stones or gallbladder wall thickening. Pt denies history of liver issues. Does report having a previous stent in her CBD for stone. ERCP with stent placement in December S/P removal of stent in February. Denies family history of liver issues. Takes [place] 3 and B12 OTC. Denies any other OTC herbs or supplements , denies any new prescription medications. Takes Hydrocodone/Acetaminophen 10/325- 4 tabs daily denies any addition Tylenol use. ETOH-2 beers a day. Denies history of IVDU , previous blood transfusion, recent travel. Complaining of: weakness and chills that began yesterday Denies: nausea, vomiting, abdominal pain and swelling, acid reflux and heartburn, changes in bowel habits, unintentional weight loss - Anemia, normocytic Recent work up by GI doctor in [place] 3 months ago, pt states he moved here 5 weeks ago. States both EGD and colonoscopy were normal exams. - Chronic pancreatitis- Pt on Creon (10/24) Elevated LFTs likely secondary to choledocholithiasis. Fever consistent with acute cholangitis, pt is on Zosyn. MRCP --> Small amount of air identified in the intrahepatic biliary tree and gallbladder. Small gallstones and probable small stones within the common bile duct. Common bile duct is at the upper limits of normal in caliber measuring 7 mm. There is no significant intrahepatic biliary distention. Mild gallbladder wall thickening and edema. Normal pancreatic duct with side branch dilatations. This appearance can be seen in patients with a history of chronic pancreatitis. 10/27/2015 patient resting in the bed. Denies any current symptoms of nausea vomiting or abdominal pain and is tolerating food without any issues. Discussing moving forward with cholecystectomy within the near future. GI will follow as needed Patient was status post ERCP on 10/26/2015 with findings: symptoms include a prior sphincterotomy. Dilation noted in the common bile duct, multiple stones were seen in the mid common bile duct. Cholangiogram was obtained. using a stone extraction balloon the bile duct was swept 3 times. 4 stones were removed successfully. Labs show hemoglobin 11.1, normal bilirubin with decrease in LFTs AST 36 ALT 80, alkaline phosphatase 196, alk phos 1 antitrypsin 152, SONIYA and AMSA negative. Other liver test are pending. Plan: Diet as tolerated Monitor labs including LFTs Creon Zosyn Bowel regimen Supportive care Pt has been seen and examined by myself and Dr. Abdi and this note is written on his behalf (Angela Paredes) Physician Comments Seen with home Miller as above. Would recommend cholecystectomy. Will sign off, please notify is needed again. (Kristin Abdi MD) Angela Paredes Oct 26, 2017 16:27 Kristin Abdi MD Oct 27, 2017 10:13
[2017-10-26 19:53] LABS: CERULOPLASMIN 25 mg/dL (18-36)
[2017-10-26] MEDS: ATORVASTATIN 80 MG TAB PO SCH (20:53)
[2017-10-27] VITALS (10 sets, daily range): BP systolic 139–168; BP diastolic 65–80; PULSE 41–53; RESP 16–20; TEMP 97.6–98.5; O2SAT 95–98
[2017-10-27] MEDS: ACETAMINOPHEN/HYDROcodone 325 MG/5 MG TAB PO PRN ×6 (03:43→23:59)
[2017-10-27] MEDS: SODIUM CHLOR 0.9% 1000 ML INJ 1,000 ML IV SCH ×3 (03:44→20:07)
[2017-10-27 03:53] LABS: MITOCHONDRIAL ABS LESS THAN 20.0 U (<=20.0)
[2017-10-27] MEDS: PIPERACIL-TAZO 3.375 GM PREMIX 50 ML IV SCH ×4 (05:42→23:59)
[2017-10-27] MEDS: HEPARIN SODIUM - SQ 10,000 UNITS/ML VIAL SQ SCH ×3 (05:44→20:07)
[2017-10-27] MEDS: ACYCLOVIR 5% OINT 15 APPLIC/15 GM TUBE TOPICAL SCH ×4 (05:46→18:08)
[2017-10-27 07:33] LABS: ALBUMIN 2.8 GM/DL (3.4-5.0); AST (GOT) 34 U/L (15-37); BICARBONATE 23.8 MEQ/L (21.0-32.0); BLOOD UREA NITROGEN 7 MG/DL (7-18); CALCIUM 8.8 MG/DL (8.5-10.1); CHLORIDE 112 MEQ/L (98-107); CREATININE 0.84 MG/DL (0.60-1.30); GLOMERULAR FILTRATION RATE 90 ML/MIN (>89); GLUCOSE,RANDOM 130 MG/DL (74-106); SODIUM (NA) 145 MEQ/L (136-145)
[2017-10-27 07:34] LABS: ALT (GPT) 71 U/L (12-78)
[2017-10-27 07:36] LABS: ALKALINE PHOSPHATASE 175 U/L (45-117); TOTAL BILIRUBIN ADULT 0.4 MG/DL (0.2-1.0); TOTAL PROTEIN 5.6 GM/DL (6.4-8.2)
[2017-10-27] MEDS: INSULIN ASPART SUPPLEMENTAL SCALE SQ SCH ×4 (08:00→20:41)
[2017-10-27] MEDS: LIPASE/PROTEASE/AMYLASE (24,000/76,000/120,000) CAP PO SCH ×2 (08:02→20:02)
[2017-10-27] MEDS: LOSARTAN 50 MG TAB PO SCH (08:02)
[2017-10-27] MEDS: DULoxetine HCl DR 60 MG CAP PO SCH (08:02)
[2017-10-27] MEDS: ATENOLOL 25 MG TAB PO SCH (08:02)
[2017-10-27] MEDS: SODIUM CHLORIDE 0.9% FLUSH 10 ML FLUSH IV FLUSH SCH ×2 (09:00→20:07)
--- NOTE | 2017-10-27 12:57 | PD.CONS ---
HPI Service Patient presented to the hospital within the last week after being on the floor playing his with his dog and being too weak to get up. Patient moved from [place] within the last 8 months, and 8 months ago he was in the hospital there having ERCP with removal of common duct stones. It was recommended to him that he see a surgeon for gallbladder removal but then he moved and neglected to have follow-up. Initial workup with ultrasound did not demonstrate any gallstones. A CT scan did show pneumobilia with air in the gallbladder as well. MRCP demonstrated filling defects within the common bile duct and the gallbladder suspicious for small stones. He underwent ERCP with sphincterotomy and removal of 4 stones from his common bile duct. The patient has a history of chronic back pain and is on narcotic pain medicines, he also was on supplemental enzymes for chronic pancreatitis. The patient has had prior back surgeries, surgeries on the wrist and hands for lacerations, and previous history of staph infection in his left upper extremity. Patient denies any problems with a anesthesia. He denies any history of chest pain or heart attack. Patient is a diabetic but [id number]. He has also had prior tonsillectomy. Patient denies any color change in the sclera of his eyes, darkening of the urine, or lightening of the stools. Consult Requested By Dr. Abdi Reason for Consult Gallbladder removal Primary Care Physician Deja Sadler MD History of Present Illness Please see above. Review of Systems Constitutional: COMPLAINS OF: Fatigue Gastrointestinal: COMPLAINS OF: Abdominal pain Other Fever, weakness, infection. Past Family Social History Past Medical History Chronic back pain, degenerative changes, osteophytes. Zku-sevlbmh-toltnaowc diabetes. Chronic pancreatitis requiring enzyme supplementation. Past Surgical History Tonsillectomy, tendon repair left wrist, laceration repairs, incision and drainage for staph infections. No prior abdominal surgeries. Reported Medications Patient takes oral medications for diabetes, he takes pancreatic enzyme supplemental, he takes hydrocodone 10 4 times a day. Please refer to documented list for completeness sake. Allergies: Coded Allergies: No Known Allergies (Unverified , 10/22/17) Active Ordered Medications Current Medications Medications (Trade) Dose Ordered Sig/Nora Route Start Time Stop Time Status Last Admin Piperacillin Sod/ Tazobactam Sod 50 ml @ 100 mls/hr Q6H IV 10/23/17 00:00 10/27/17 12:02 Sodium Chloride 1,000 ml @ 100 mls/hr Q10H IV 10/22/17 21:57 10/27/17 11:57 (NS Flush) 2 ml UNSCH PRN IV FLUSH 10/22/17 22:00 (NS Flush) 2 ml BID IV FLUSH 10/23/17 09:00 10/27/17 09:00 (Tylenol) 650 mg Q4H PRN PO 10/22/17 22:00 (Heparin Inj) 5,000 units Q8H SQ 10/22/17 22:00 10/27/17 05:44 (Narcan Inj) 0.4 mg UNSCH PRN IV PUSH 10/22/17 22:00 (D50w (Vial) Inj) 50 ml UNSCH PRN IV PUSH 10/22/17 22:00 (Glucagon Inj) 1 mg UNSCH PRN OTHER 10/22/17 22:00 (NovoLOG SUPPLEMENTAL SCALE) 1 ACHS SLIDING SCALE SQ 10/23/17 08:00 10/27/17 12:00 (Norvasc) 10 mg BID PO 10/23/17 09:00 10/27/17 08:02 (Tenormin) 25 mg BID PO 10/23/17 09:00 10/27/17 08:02 (Lipitor) 80 mg HS PO 10/22/17 22:30 10/26/17 20:53 (Cymbalta Dr) 60 mg DAILY PO 10/23/17 09:00 10/27/17 08:02 (Cozaar) 100 mg DAILY PO 10/23/17 09:00 10/27/17 08:02 (Creon 24-76-120) 1 cap BID PO 10/23/17 09:00 10/27/17 08:02 ([place] 5-325 Mg) 1 tab Q4H PRN PO 10/24/17 18:15 10/27/17 11:59 Lactated Ringer's 1,000 ml @ 30 mls/hr Q24H PRN IV 10/25/17 07:00 10/28/17 06:59 Sodium Chloride 500 ml @ 30 mls/hr [id number] PRN IV 10/25/17 07:00 10/28/17 06:59 (Betadine 5% Antisepsis Kit) 1 applic COMPOSITION SIDING WORKER PRN EACH NARE 10/25/17 07:00 10/28/17 06:59 (Chlorhexidine 2% Cloth) 3 pack COMPOSITION SIDING WORKER PRN TOPICAL 10/25/17 07:00 10/28/17 06:59 (Zovirax 5% Oint (15 Gm)) 1 applic 5 TIMES A DAY TOPICAL 10/25/17 14:00 10/27/17 10:00 Family History Mother had GI cancer. Father had splenectomy, cholecystectomy and from gangrenous changes. Both parents in their early 50s. Social History Non-smoker. Drinks beer every week. Denies HIV or hepatitis risk factors. He is retired originally from [place], spent 30 years in [place], before recently moving to [place]. He lives at home with his . Physical Exam Vital Signs Vital Signs Date Time Temp Pulse Resp B/P (MAP) Pulse Ox O2 Delivery O2 Flow Rate FiO2 10/27/17 12:00 97.8 52 17 168/72 (104) 95 10/27/17 08:59 18 10/27/17 08:00 97.8 47 18 165/80 (108) 98 10/27/17 04:00 98.1 50 20 139/65 (89) 97 10/27/17 03:57 41 10/27/17 00:14 98.4 45 20 150/65 (93) 97 10/27/17 00:03 45 10/26/17 20:00 98.3 55 20 144/69 (94) 97 10/26/17 19:44 90 10/26/17 19:29 46 10/26/17 16:00 98.5 52 18 148/68 (94) 96 Physical Exam In general he is awake alert oriented pleasant and cooperative the exam. He is appropriately entered active. Does not appear depressed. HEENT is normocephalic atraumatic his pupils are 2-3 round and reactive to light. His sclera are anicteric. His oropharynx is clear he has good dentition. He has no oral mucosal lesions. His neck is supple without adenopathy, he has no evidence of thyromegaly, no evidence of carotid bruits. His trachea is midline. His lung sounds are clear and equal anteriorly. His heart sounds are regular without obvious murmur rub or gallop. His abdomen is mildly protuberant soft and nondistended nontender. He has normal bowel sounds and no abdominal bruits. Genital and rectal exams were not repeated. His extremities demonstrate no evidence of cyanosis clubbing or edema. He has surgical scars on bilateral upper extremities at the wrists and hands. Neurologically he is awake alert oriented he has equal strong bilateral repossessor strength, and no gross motor or sensory deficit. Laboratory Laboratory Tests Test 10/26/17 13:15 10/27/17 06:14 Blood Urea Nitrogen 5 7 Creatinine 0.96 0.84 Random Glucose 178 130 Total Protein 6.0 5.6 Albumin 2.9 2.8 Calcium Level 8.9 8.8 Alkaline Phosphatase 196 175 Aspartate Amino Transf (AST/SGOT) 36 34 Alanine Aminotransferase (ALT/SGPT) 80 71 Total Bilirubin 0.3 0.4 Sodium Level 144 145 Potassium Level 3.9 3.6 Chloride Level 112 112 Carbon Dioxide Level 23.4 23.8 Anion Gap 9 9 Estimat Glomerular Filtration Rate 77 90 Date/Time Source Procedure Growth Status 10/22/17 17:45 Blood Peripheral Aerobic Blood Culture - Final NO GROWTH IN 5 DAYS Complete 10/22/17 17:45 Blood Peripheral Anaerobic Blood Culture - Final NO GROWTH IN 5 DAYS Complete 10/23/17 06:30 Nasal Aspirate Influenza Types A,B Antigen (CHRIS) - Final NEGATIVE FOR FLU A AND B ANTIGEN.... Complete Result Diagram: 10/23/17 0842 10/27/17 0614 Imaging Ultrasound, CT, MRCP films reviewed in detail. Course Patient has been hospitalized undergone extensive evaluation including ERCP sphincterotomy and stone removal from the common bile duct. This is the second time he has had to have this done within the past 8-10 months. There is an indication to consider laparoscopic cholecystectomy. Assessment and Plan Assessment and Plan 72-year-old gentleman who is undergone ERCP with stone removal from the common bile duct twice in the last 8 months. He has a significant history of narcotic use for chronic back pain and chronic pancreatitis on enzyme supplementation. I discussed with him at length indications for laparoscopic cholecystectomy, possible open, and he understands and wished to proceed. The procedure in detail plus risks of bleeding infection injury to intra-abdominal contents including liver bile duct or bowel, possible open surgery, DVT/pulmonary embolus and expectations for hospitalization recovery. He understands and wishes to proceed. He is put on the schedule for tomorrow as an add in. Dr. Leong is available to take care of his surgery in the morning. Consents are signed and on the chart. Preoperative antibiotics will be ordered. Isac Vallejo MD Oct 27, 2017 12:57
[2017-10-27] MEDS ORDERED: ceFAZolin 2 GM PREMIX 50 ML IV SCH (13:00)
[2017-10-27] MEDS ORDERED: metroNIDAZOLE 500 MG INJ 100 ML IV SCH (13:00)
--- NOTE | 2017-10-27 16:43 | HHI.PR ---
Subjective Remarks Resting in bed doing well after ERCP No fever or chills no abdominal pain nausea vomiting I discussed with GI attending, will consult general surgery for cholecystectomy Objective Vitals Vital Signs Date Time Temp Pulse Resp B/P (MAP) Pulse Ox O2 Delivery O2 Flow Rate FiO2 10/27/17 12:59 19 10/27/17 12:00 97.8 52 17 168/72 (104) 95 10/27/17 08:00 97.8 47 18 165/80 (108) 98 10/27/17 04:00 98.1 50 20 139/65 (89) 97 10/27/17 03:57 41 10/27/17 00:14 98.4 45 20 150/65 (93) 97 10/27/17 00:03 45 10/26/17 20:00 98.3 55 20 144/69 (94) 97 10/26/17 19:44 90 10/26/17 19:29 46 I/O 10/26/17 10/26/17 10/26/17 10/27/17 10/27/17 10/27/17 06:59 14:59 22:59 06:59 14:59 22:59 Intake Total 1880 ml 1100 ml 520 ml Balance 1880 ml 1100 ml 520 ml Intake Oral 780 ml 470 ml IV Total 1100 ml 1100 ml 50 ml # Voids 3 4 # Bowel Movements 1 0 Result Diagram: 10/23/17 0842 10/27/17 0614 Objective Remarks GENERAL: This is a well-nourished, well-developed patient, in no apparent distress. CARDIOVASCULAR: RRR, no gallops, or rubs. RESPIRATORY: Fair air entry bilaterally. No W, R, or R GASTROINTESTINAL: Abdomen soft, non-tender, nondistended. Positive bowel sounds MUSCULOSKELETAL: Extremities without clubbing, cyanosis, or edema. Pedal pulses appreciated NEUROLOGICAL: Awake and alert. Moves all extremity. Normal speech.no focal neurological deficit A/P Assessment and Plan 10/23: Fever resolved we will continue monitoring LFT, creatinine increased to 1.3>> I will order hepatitis panel, CT of the abdomen without contrast, will request records from PCP in [place], consider ID consultation Will order liver workup with ferritin, SONIYA, ASMA 10/24: Appreciate GI consultation patient had a CT abdomen with contrast yesterday which showed Pneumobilia possible cholangitis, findings consistent with chronic pancreatitis Also patient had MRCP which showed, small amount of air intrahepatic biliary tree small gallstones probably within the CBD,, CBD at the upper limits of normal 7 mm, mild gallbladder wall thickening and edema 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 SIRS Patient with fever, tachycardia and elevated lactic acid Chest x-ray significant for mild interstitial prominence in the bases, personally reviewed No leukocytosis UA negative Flu pending Blood cultures pending Zosyn 2. Transaminitis AST/ALT 101/[address] negative CT abdomen with contrast yesterday which showed Pneumobilia possible cholangitis , findings consistent with chronic pancreatitis Liver failure workup, GI consultation MRCP which showed, small amount of air intrahepatic biliary tree small gallstones probably within the CBD,, CBD at the upper limits of normal 7 mm, mild gallbladder wall thickening and edema 3. Diabetes mellitus Holding home metformin Sliding-scale insulin Monitor blood glucose 4. Hypertension/hyperlipidemia/anxiety/depression Continue home medications 5. AK I BUN/creatinine 21/1.37 IV fluid hydration Monitor renal function FEN Heart healthy diet Electrolytes: Monitor and replete as needed NS at 100 cc/hour Heparin Yung Marshall MD Oct 27, 2017 16:43
[2017-10-27] MEDS ORDERED: PILL SPLITTER OTHER PRN (20:00)
[2017-10-27] MEDS: ATORVASTATIN 80 MG TAB PO SCH (20:02)
[2017-10-27] MEDS: ATENOLOL 50 MG TAB PO SCH (20:02)
[2017-10-28] VITALS: BP 151/65; PULSE 52; RESP 18; TEMP 98; O2SAT 94
[2017-10-28] MEDS: ACETAMINOPHEN/HYDROcodone 325 MG/5 MG TAB PO PRN ×4 (04:09→20:29)
[2017-10-28] MEDS: SODIUM CHLOR 0.9% 1000 ML INJ 1,000 ML IV SCH ×2 (04:09→16:37)
[2017-10-28] MEDS: PIPERACIL-TAZO 3.375 GM PREMIX 50 ML IV SCH ×3 (04:09→16:36)
[2017-10-28] MEDS: ACYCLOVIR 5% OINT 15 APPLIC/15 GM TUBE TOPICAL SCH ×6 (04:10→20:33)
[2017-10-28] MEDS: HEPARIN SODIUM - SQ 10,000 UNITS/ML VIAL SQ SCH ×3 (04:10→20:31)
[2017-10-28 06:36] VITALS: BP 154/67; PULSE 45; RESP 18; TEMP 97.9; O2SAT 96
[2017-10-28 08:00] VITALS: BP 160/74; PULSE 48; RESP 17; TEMP 97.3; O2SAT 96
[2017-10-28] MEDS: INSULIN ASPART SUPPLEMENTAL SCALE SQ SCH ×4 (08:00→20:31)
[2017-10-28] MEDS: LOSARTAN 50 MG TAB PO SCH (08:25)
[2017-10-28] MEDS: DULoxetine HCl DR 60 MG CAP PO SCH (08:25)
[2017-10-28] MEDS: SODIUM CHLORIDE 0.9% FLUSH 10 ML FLUSH IV FLUSH SCH ×2 (08:25→20:33)
[2017-10-28] MEDS: LIPASE/PROTEASE/AMYLASE (24,000/76,000/120,000) CAP PO SCH ×2 (08:26→20:28)
[2017-10-28] MEDS: ATENOLOL 50 MG TAB PO SCH ×2 (08:27→20:30)
[2017-10-28] MEDS ORDERED: BUPIVACAINE/EPINEPHRINE 0.5% PF 30 ML VIAL ONE (08:47)
[2017-10-28] MEDS ORDERED: ceFAZolin 2 GM PREMIX 50 ML ONE (09:16)
[2017-10-28] MEDS ORDERED: metroNIDAZOLE 500 MG INJ 100 ML IV ONE (09:16)
[2017-10-28] MEDS ORDERED: *morphine SULFATE 10 MG/ML PERIprocedure ONLY ONE ×2 (10:44→11:10)
--- NOTE | 2017-10-28 10:59 | HHI.PR ---
cc: Frederick Leong MD Immediate Post Op Note Procedure Date: Oct 28, 2017 Pre Op Diagnosis: (1) Cholelithiasis (2) Choledocholithiasis (3) S/P ERCP Post Op Diagnosis: (1) S/P laparoscopic cholecystectomy (2) Lactic acid increased (3) Sepsis (4) Cholelithiasis (5) Choledocholithiasis (6) S/P ERCP Surgeon: Frederick Leong Perioperative Assistant(s): Please refer to operating room records Procedure: Please refer to operating room records Findings: Chronically inflamed gallbladder Complications: None Specimen(s) removed: Inflamed gallbladder Estimated blood loss: 50 cc Anesthesia: General Drains: None IVF Patient to: PACU Patient Condition: Good Implant/Devices: SEE IMPLANT LOG (if applicable) Date/Time of Procedure: SEE SURGICAL CARE RECORD Frederick Leong MD Oct 28, 2017 10:59
[2017-10-28] MEDS ORDERED: DO NOT ADM ANY ANTICOAGULANT DRUGS PRN ×2 (11:15)
--- NOTE | 2017-10-28 11:51 | MP ---
cc: Frederick Leong MD DATE OF OPERATION: 10/28/2017 DATE OF PROCEDURE: 10/28/2017. PREOPERATIVE DIAGNOSIS: Cholelithiasis, cholecystitis, status post endoscopic retrograde cholangiopancreatography for choledocholithiasis. POSTOPERATIVE DIAGNOSES: Cholelithiasis, cholecystitis, status post endoscopic retrograde cholangiopancreatography for choledocholithiasis. PROCEDURE PERFORMED: Laparoscopic cholecystectomy. ANESTHESIA: General. SURGEON: Dr. Leong INDICATIONS: This is a pleasant 72-year-old gentleman who had a couple episodes of choledocholithiasis with an ERCP being recently performed. Plans were made for above. PROCEDURE: The patient is taken to the operating room and placed in supine position. After anesthesia, his abdomen is prepped with Betadine. We made an incision below the umbilicus. The Veress needle was inserted and saline load test performed. The abdomen is insufflated with 15 mmHg. A 10 mm trocar is introduced. Two other working ports are placed, a 5 mm below the xiphoid, 5 mm in between the 2 previously placed ports. The gallbladder was then grasped superiorly and laterally, identifying the cystic duct. He has a posterior branch of the cystic artery with an anterior branch. Both these are ligated with Hemoclips and transected. The gallbladder is then teased off the gallbladder bed. It is quite thin and friable. We did make a small chapis in the gallbladder and some of the bile spilled and some small stones, which are easily evacuated with the suction device. We then dissect the gallbladder off the gallbladder fossa and place in EndoCatch and pull it out through the umbilical incision and passed off the field. We check our dissection site. There is excellent hemostasis without biliary leakage. The liver is smooth, peritoneal surfaces smooth. There are no other gross abnormalities seen. We then remove all 3 trocars. The umbilical incision is closed at the fascial layer with 0 Vicryl, and skin is closed with a 4-0 Vicryl and all 3 sites. The patient tolerated the procedure well, had no immediate postop complications. Frederick Leong MD JMARILUZ/ANITA , 11:06 AM , 11:50 AM
[2017-10-28 12:00] VITALS: BP 150/70; PULSE 56; RESP 17; TEMP 97.8; O2SAT 93
--- NOTE | 2017-10-28 12:43 | HHI.PR ---
Subjective Remarks Patient just came from cholecystectomy he is doing well except for feeling sore in his abdomen no nausea or vomiting no fever Objective Vitals Vital Signs Date Time Temp Pulse Resp B/P (MAP) Pulse Ox O2 Delivery O2 Flow Rate FiO2 10/28/17 12:00 97.8 56 17 150/70 (96) 93 10/28/17 11:30 97.6 55 14 139/62 (87) 93 Room Air 10/28/17 11:15 51 14 142/65 (90) 97 Room Air 10/28/17 11:00 50 14 158/66 (96) 98 Nasal Cannula 2 10/28/17 10:45 61 14 165/89 (114) 95 Nasal Cannula 2 10/28/17 10:41 97.6 69 14 166/76 (106) 97 Nasal Cannula 2 10/28/17 08:00 97.3 48 17 160/74 (102) 96 10/28/17 06:36 97.9 45 18 154/67 (96) 96 10/28/17 00:00 98.0 52 18 151/65 (93) 94 10/27/17 23:36 46 10/27/17 20:00 98.5 53 18 155/72 (99) 98 10/27/17 19:25 51 10/27/17 17:01 19 10/27/17 16:00 97.6 51 16 144/66 (92) 96 I/O 10/27/17 10/27/17 10/27/17 10/28/17 10/28/17 10/28/17 07:00 15:00 23:00 07:00 15:00 23:00 Intake Total 520 ml 1900 ml 1340 ml 1150 ml Output Total 50 ml Balance 520 ml 1900 ml 1340 ml 1100 ml Intake Oral 470 ml 900 ml 240 ml IV Total 50 ml 1000 ml 1100 ml 1150 ml Estimated Blood Loss 50 ml # Voids 4 4 4 # Bowel Movements 0 1 Result Diagram: 10/27/17613 Objective Remarks GENERAL: This is a well-nourished, well-developed patient, in no apparent distress. CARDIOVASCULAR: RRR, no gallops, or rubs. RESPIRATORY: Fair air entry bilaterally. No W, R, or R GASTROINTESTINAL: Abdomen soft, did not try palpation patient just post cholecystectomy, nondistended. Positive bowel sounds, scars from cholecystectomy noted MUSCULOSKELETAL: Extremities without clubbing, cyanosis, or edema. Pedal pulses appreciated, NEUROLOGICAL: Awake and alert. Moves all extremity. Normal speech.no focal neurological deficit A/P Assessment and Plan 10/23: Fever resolved we will continue monitoring LFT, creatinine increased to 1.3>> I will order hepatitis panel, CT of the abdomen without contrast, will request records from PCP in [place], consider ID consultation Will order liver workup with ferritin, SONIYA, ASMA 10/24: Appreciate GI consultation patient had a CT abdomen with contrast yesterday which showed Pneumobilia possible cholangitis, findings consistent with chronic pancreatitis Also patient had MRCP which showed, small amount of air intrahepatic biliary tree small gallstones probably within the CBD,, CBD at the upper limits of normal 7 mm, mild gallbladder wall thickening and edema 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 A/P: 1. SIRS Patient with fever, tachycardia and elevated lactic acid Chest x-ray significant for mild interstitial prominence in the bases, personally reviewed No leukocytosis UA negative Flu pending Blood cultures pending Zosyn 2. Transaminitis AST/ALT 101/[address] abdomen with contrast yesterday which showed Pneumobilia possible cholangitis , findings consistent with chronic pancreatitis Liver failure workup, GI consultation MRCP which showed, small amount of air intrahepatic biliary tree small gallstones probably within the CBD,, CBD at the upper limits of normal 7 mm, mild gallbladder wall thickening and edema 3. Diabetes mellitus Holding home metformin Sliding-scale insulin Monitor blood glucose 4. Hypertension/hyperlipidemia/anxiety/depression Continue home medications 5. AK I BUN/creatinine 21/1.37 IV fluid hydration Monitor renal function FEN Heart healthy diet Electrolytes: Monitor and replete as needed NS at 100 cc/hour Heparin Yung Marshall MD Oct 28, 2017 12:43
[2017-10-28 16:00] VITALS: BP 145/66; PULSE 73; RESP 17; TEMP 98.3; O2SAT 94
[2017-10-28 20:00] VITALS: BP 139/65; PULSE 60; RESP 16; TEMP 98.4; O2SAT 95
[2017-10-28] MEDS: ATORVASTATIN 80 MG TAB PO SCH (20:28)
[2017-10-29] VITALS: BP 160/70; PULSE 57; RESP 16; TEMP 98.3; O2SAT 92
[2017-10-29] MEDS: PIPERACIL-TAZO 3.375 GM PREMIX 50 ML IV SCH ×3 (00:38→12:00)
[2017-10-29] MEDS: ACETAMINOPHEN/HYDROcodone 325 MG/5 MG TAB PO PRN ×4 (00:38→12:31)
[2017-10-29] MEDS: SODIUM CHLOR 0.9% 1000 ML INJ 1,000 ML IV SCH (03:56)
[2017-10-29 04:00] VITALS: BP 140/67; PULSE 59; RESP 16; TEMP 98.5; O2SAT 95
[2017-10-29] MEDS: ACYCLOVIR 5% OINT 15 APPLIC/15 GM TUBE TOPICAL SCH ×2 (05:56→10:41)
[2017-10-29] MEDS: HEPARIN SODIUM - SQ 10,000 UNITS/ML VIAL SQ SCH (05:57)
[2017-10-29 08:00] VITALS: BP 162/74; PULSE 53; RESP 18; TEMP 97.9; O2SAT 99
[2017-10-29] MEDS: LIPASE/PROTEASE/AMYLASE (24,000/76,000/120,000) CAP PO SCH (08:14)
[2017-10-29] MEDS: LOSARTAN 50 MG TAB PO SCH (08:15)
[2017-10-29] MEDS: DULoxetine HCl DR 60 MG CAP PO SCH (08:15)
[2017-10-29] MEDS: SODIUM CHLORIDE 0.9% FLUSH 10 ML FLUSH IV FLUSH SCH (08:15)
[2017-10-29] MEDS: INSULIN ASPART SUPPLEMENTAL SCALE SQ SCH ×2 (08:15→12:00)
[2017-10-29] MEDS: ATENOLOL 50 MG TAB PO SCH (08:16)
--- NOTE | 2017-10-29 09:59 | HHI.PR ---
cc: Frederick Leong MD Subjective Subjective Notes DAILY PROGRESS NOTE FOR SURGICAL ATTENDING, DR. FREDERICK LEONG Resting in bed No issues Tolerated dinner last night and breakfast this morning Objective Vitals/I&O Vital Signs Date Time Temp Pulse Resp B/P (MAP) Pulse Ox O2 Delivery O2 Flow Rate FiO2 10/29/17 08:00 97.9 53 18 162/74 (103) 99 10/28/17 11:30 Room Air 10/28/17 11:00 2 Labs Date/Time Source Procedure Growth Status 10/22/17 17:45 Blood Peripheral Aerobic Blood Culture - Final NO GROWTH IN 5 DAYS Complete 10/22/17 17:45 Blood Peripheral Anaerobic Blood Culture - Final NO GROWTH IN 5 DAYS Complete 10/23/17 06:30 Nasal Aspirate Influenza Types A,B Antigen (CHRIS) - Final NEGATIVE FOR FLU A AND B ANTIGEN.... Complete Radiology Ultrasound, CT, MRCP films reviewed in detail. Cardiovascular: Regular Lungs: Clear Abdomen: Other (lap sites c/d/i ), Post-op tenderness Extremities: No edema A/P Problem List: (1) S/P laparoscopic cholecystectomy ICD Codes: Z90.49 - Acquired absence of other specified parts of digestive tract Status: Acute (2) S/P ERCP ICD Codes: Z98.890 - Other specified postprocedural states Status: Acute (3) Cholelithiasis ICD Codes: K80.20 - Calculus of gallbladder without cholecystitis without obstruction Status: Resolved (4) Choledocholithiasis ICD Codes: K80.50 - Calculus of bile duct without cholangitis or cholecystitis without obstruction Status: Resolved Assessment and Plan 72 year old male POD1 lap maria luisa -Tolerating diet -Pain controlled -DC [facility] clear for DC -Follow up November [address] Leong -Discussed with KEY Montes Attending Statement NOTE FOR SURGICAL ATTENDING, DR. FREDERICK LEONG I agree with above assessment and plan. The history, and the medical decision-making described in the above note were completed with the assistance of the mid-level provider. I reviewed and agree with the findings presented. The following services were provided during this hospital visit: Chart data review, vital sign assessments/reviewing monitor data Review of consultations notes if present. Medication orders/review and/or management Ordering and/or reviewing lab tests Ordering and/or interpreting/reviewing x-rays and/or diagnostic studies Care of the patient and discussion of the patient with the care team Documentation time To help prompt me to consider important information that might be impacting today's encounter and assessment, Information from prior notes written by myself or my colleagues may have been "brought forward/copy and pasted" into today's note. Tami Javed/First Luis Alberto BARRERA Oct 29, 2017 09:59 Frederick Leong MD Oct 29, 2017 10:14
[2017-10-29] MEDS ORDERED: HYDR-3366 PO (10:00)
--- NOTE | 2017-10-29 11:48 | HHI.DS ---
Discharge Summary Admission Date Oct 22, 2017 at 21:16 Discharge Date: Oct 29, 2017 Admitting Diagnosis sepsis, unkown source, hypotension (1) S/P ERCP ICD Code: Z98.890 - Other specified postprocedural states Status: Acute (2) S/P laparoscopic cholecystectomy ICD Code: Z90.49 - Acquired absence of other specified parts of digestive tract Status: Acute (3) Choledocholithiasis ICD Code: K80.50 - Calculus of bile duct without cholangitis or cholecystitis without obstruction Status: Resolved (4) Cholelithiasis ICD Code: K80.20 - Calculus of gallbladder without cholecystitis without obstruction Status: Resolved (5) Sepsis ICD Code: A41.9 - Sepsis, unspecified organism Status: Acute (6) Fever of unknown origin ICD Code: R50.9 - Fever, unspecified Status: Acute Procedures See below Brief History - From Admission 72-year-old male with a past medical history significant for hypertension, hyperlipidemia, anxiety/depression and diabetes mellitus presents to the emergency department for evaluation of weakness the patient reports that earlier today he was on the floor playing with the dog and was unable to get up. He has no history of this. The patient is a poor historian. He endorses subjective fevers/chills. Denies cough. No chest pain or shortness of breath. No otorrhea breath/rhinorrhea. No dysuria. No abdominal pain. No nausea/ vomiting/diarrhea. No lateralizing signs or symptoms. CBC/BMP: 10/27/17 0614 Significant Findings Laboratory Tests Test 10/26/17 13:15 10/27/17 06:14 Blood Urea Nitrogen 5 MG/DL (7-18) Random Glucose 178 MG/DL (74-106) 130 MG/DL (74-106) Total Protein 6.0 GM/DL (6.4-8.2) 5.6 GM/DL (6.4-8.2) Albumin 2.9 GM/DL (3.4-5.0) 2.8 GM/DL (3.4-5.0) Alkaline Phosphatase 196 U/L (45-117) 175 U/L (45-117) Alanine Aminotransferase (ALT/SGPT) 80 U/L (12-78) Chloride Level 112 MEQ/L (98-107) 112 MEQ/L (98-107) Estimat Glomerular Filtration Rate 77 ML/MIN (>89) PE at Discharge GENERAL: This is a well-nourished, well-developed patient, in no apparent distress. CARDIOVASCULAR: RRR, no gallops, or rubs. RESPIRATORY: Fair air entry bilaterally. No W, R, or R GASTROINTESTINAL: Abdomen soft, did not try palpation patient just post cholecystectomy, nondistended. Positive bowel sounds, scars from cholecystectomy noted MUSCULOSKELETAL: Extremities without clubbing, cyanosis, or edema. Pedal pulses appreciated, NEUROLOGICAL: Awake and alert. Moves all extremity. Normal speech.no focal neurological deficit Hospital Course 72 male years old admitted with seizures elevated transaminase, and lipase fever , liver workup has been ordered GI consulted as well as ID MRCP has been done showed intrahepatic biliary tree small gallstone 7 mm CBD stones, this followed by ERCP with extraction of 4 stones, later surgery consulted patient had a cholecystectomy, with good recovery patient cleared to be discharged home, patient is a diabetic he used metformin and glipizide, I advised him to continue and check his blood sugar 4 times a day and follow-up with his PCP, patient also will have to follow-up with his surgeon, and GI [id number] encounter performed with the patient on discharge day, as well as physical exam, summary of hospitalization course and postdischarge plan has been D/W the patient. D/W nurse D/W porter sample case. Discharge medications reviewed and printed and signed, post discharge follow up visit with PCP and other specialist as well as Brief hospital course and discharge summary has been placed. Pt Condition on Discharge: Fair Discharge Disposition: Discharge Home Discharge Time: > 30 minutes Discharge Instructions DIET: Follow Instructions for: Heart Healthy Diet, Diabetic Diet, Low Fat Diet Activities you can perform: Weight Bearing as Jennifer Follow up Referrals: Appointment for Follow Up PCP Follow-up Surgical - 11/07/17 with Frederick Leong MD Appt set for November 07 at 9:50AM Surgical New Medications: Hydrocodone-Acetaminophen (Ragan) 10-325 Mg Tab 1 TAB PO Q4H PRN for PAIN, #18 TAB 0 Refills Continued Medications: Amlodipine (Amlodipine) 10 Mg Tab 10 MG PO BID for Blood Pressure Management, #30 TAB 0 Refills Atenolol (Atenolol) 25 Mg Tab 25 MG PO BID for Blood Pressure Management, #60 TAB 0 Refills Atorvastatin (Atorvastatin) 80 Mg Tab 80 MG PO HS for Cholesterol Management, #30 TAB 0 Refills Clonazepam (Clonazepam) 0.5 Mg Tab 0.5 MG PO BID, #60 TAB [address] (Duloxetine DR) 60 Mg Capdr 60 MG PO DAILY, #30 CAP 0 Refills Glimepiride (Glimepiride) 4 Mg Tab 4 MG PO BIDAC for Blood Sugar Management, #60 TAB 0 Refills Hydrochlorothiazide (Hydrochlorothiazide) 25 Mg Tab 25 MG PO BID, #30 TAB Losartan (Losartan) 100 Mg Tab 100 MG PO DAILY for Blood Pressure Management, #30 TAB 0 Refills Metformin (Metformin) 1,000 Mg Tab 1000 MG PO BIDPC for Blood Sugar Management, #60 TAB 0 Refills Pancrelipase (Creon) 36,000-114,000-180,000 Units Cap 1 CAP PO BID for Digestive Aid, #90 CAP 0 Refills Yung Marshall MD Oct 29, 2017 11:48
[2017-10-29 12:00] VITALS: BP 154/72; PULSE 62; RESP 17; TEMP 98; O2SAT 95
== END 2017-10-29 13:32 | disposition home or self-care (01) | DRG 854 ==
LOC: NEPE 16:53 → NEDA 21:16 → N07B 22:34
PROVIDERS: ADMIT Hospitalist; ATTEND Hospitalist
PROC: 0FC98ZZ Extirpation of Matter from Common Bile Duct, Via Natural or Artificial Opening Endoscopic (ICD-10-PCS; 2017-10-25)
PROC: BF10YZZ Fluoroscopy of Bile Ducts using Other Contrast (ICD-10-PCS; 2017-10-25)
PROC: 0FT44ZZ Resection of Gallbladder, Percutaneous Endoscopic Approach (ICD-10-PCS; principal; 2017-10-28 09:10)
DX: A41.9 Sepsis, unspecified organism (principal); K86.1 Other chronic pancreatitis; K80.64 Calculus of gallbladder and bile duct with chronic cholecystitis without obstruction; E11.9 Type 2 diabetes mellitus without complications; K80.30 Calculus of bile duct with cholangitis, unspecified, without obstruction; D64.9 Anemia, unspecified; I10 Essential (primary) hypertension; I44.7 Left bundle-branch block, unspecified; E78.5 Hyperlipidemia, unspecified; K76.9 Liver disease, unspecified; B00.1 Herpesviral vesicular dermatitis; F32.9 Major depressive disorder, single episode, unspecified; F41.9 Anxiety disorder, unspecified; Z79.84 Long term (current) use of oral hypoglycemic drugs
CPT/HCPCS: 70450; 71045; 74177; 74181; 74330; 76377; 76705; 80053; 80061; 80074; 81001; 82103; 82150; 82390; 82550; 82728; 82948; 83520; 83540; 83550; 83605; 83690; 83735; 84443; 84484; 85025; 85610; 85730; 86038; 86255; 86664; 86665; 87040; 87804; 88304; 93005; 96365; 96368; J0690; J1644; J1815; J2270; J2405; J2543; J2710; J3010; J3370; J7030; J7050; Q9963; Q9967